=== PATIENT | female | born 2000 | race Caucasian/White ===

== ENCOUNTER 2024-09-03 05:12 | Emergency (ER) | payer OTHER ==
--- OUTSIDE RECORDS SUMMARY | 2024-09-03 05:17 | XMS REPORT | Continuity of Care Document ---
Author Name Unknown Address [address] [place] [address] [facility] Address [address] [place] [address] Care Team Providers Care Button Grader Name Role Phone GARIMA GAYLE Primary Care Physician Unavailab DAVION Taylor Attending Clinician Unavailable ESTRELLITA VILLA Attending Clinician ESTRELLITA Still Attending Clinician Yamilet Jose Attending Clinician [phone] YAMILET PALMER Attending Clinician Unavailable OBI-ROELCHRISTINA Peterson Attending Clinician Unavailab cinthia OBI-CHRISTINA SEVILLA Attending Clinician Unavailab cinthia Parmarb, [facility] Attending Clinician Unavailrudolph Jacobson RN, Pia Harris Attending Clinician KEITH Jimenez Attending Clinician Unavail able GARIMA GAYLE Attending Clinician Unavailable Garima Gayle MD Attending Clinician [phone] Doctor Unassigned, [place] Attending Clinician U Michael Riggs Attending Clinician Unavailable Delbert Rosen MD Attending Clinician [phone] Helder Alfredo Attending Clinician Unavailable DELBERT ROSEN Attending Clinician Unavailable EFREM RASHID Attending Clinician Unavailable Davion Mercado MD Attending Clinician Only, Vtc Test Attending Clinician Unavailable Rosangela HASSANSilvinoa Attending Clinician [phone] Abi ELLISON, Yamilet Arambula Attending Clinician [phone] DIOGO ESCALERA Attending Clinician Unavail able DAVION MERCADO Admitting Clinician Unavailable Physician, No Primary or Family Admitting Clinic ricardo Unavailable DIOGO ESCALERA Admitting Clinician Unavail able Payers Payer Name Policy Type Policy Number Effective Date Expirati on Date Source [facility] [id number] 2016 00:00:00 Problems Condition Name Condition Details Condition Category Status Onset Date Resolution Date Last Treatment Date Treating Clinician Comments Source 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 Added automatic ally from request for surgery [id number] [facility] Chronic intractabl e headache, unspecifie d headache type Chronic intractabl e headache, unspecifie d headache type Disease Active 12-11 00:00: 00 Overview: Formattin g of this note might be different from the original. 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 Added automatic ally from request for surgery [id number] [facility] Patient denies medical problems Patient denies medical problems Disease Active 01-17 00:00: 00 Overview: Formattin g of this note might be different from the original. 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 [facility] Allergies, Adverse Reactions, Alerts Allergy Name Allergy Type Status Severity Reaction(s) Onset Date Inactive Date Treating Clinician Comments Source amoxicil layo DA Active SV RASH-HIVES 06-05 00:00: 00 [facility] AMOXICIL LAYO DRUG INGREDI Active Hives 12-07 00:00: 00 [facility] Amoxicil layo Propensi ty to adverse reaction s Active Hives 12-07 00:00: 00 [facility] Social History Social Habit Start Date Stop Date Quantity Comments Source [facility] intake 2023-08-02 00:00:00 2023-08-02 00:00:00 Current non-drinker of alcohol (finding) [facility] Exposure to SARS-CoV-2 (event) 2023-02-17 00:00:00 2023-02-27 10:15:00 Not sure [facility] History of Social function 2023-02-27 00:00:00 2023-02-27 00:00:00 [facility] Tobacco use and exposure 2022-12-21 00:00:00 2022-12-21 00:00:00 Smokeless tobacco non-user [facility] Sex Assigned At 2002 00:00:00 2000 00:00:00 [facility] Smoking Status Start Date Stop Date Source Never smoked tobacco [facility] Medications Ordered Medication Name Filled Medication Name Start Date Stop Date Current Medication? Ordering Clinician Indication Dosage Frequency Signature (SIG) Comments Components Source sennosides (SENNA) 8.6 mg tablet 2022-10 00:00: 00 08-30 05:59 :00 No [id number] 8.6mg Take 1 tablet by mouth ONCE PRN for Constipati on for up to 1 dose. [facility] cephALEXin 500 mg capsule 2022-10 00:00: 00 08-28 00:00 :00 No [facility] ibuprofen 600 mg tablet 2022-10 00:00: 00 08-28 00:00 :00 No [facility] sulfamethox azole-trime thoprim 800-160 mg per tablet 2022-10 00:00: 00 08-28 00:00 :00 No [facility] ibuprofen (ADVIL ORAL) 04-13 10:59: 30 04-13 00:00 :00 No Take by mouth. [facility] ibuprofen (ADVIL ORAL) 16 11:38: 29 Yes Take by mouth. [facility] ondansetron 4 mg tablet 5-16 00:00: 00 04-13 00:00 :00 No [id number] 4mg Take 1 tablet by mouth every 8 (eight) hours as needed for Nausea and Vomiting (N/V). [facility] etonogestre L (NEXPLANON) implant 68 mg 3-09 16:00: 00 12-21 15:06 :00 No [id number] 68mg [facility] ibuprofen (ADVIL ORAL) 2-23 11:28: 50 Yes Take by mouth. [facility] cefdinir 300 mg capsule 04-07 00:00: 00 04-18 04:59 :00 No [id number] 300mg Take 1 capsule by mouth 2 (two) times daily for 10 days. [facility] neomycin-po lymyxin-hyd rocortisone otic solution 04-07 00:00: 00 04-18 04:59 :00 No [id number] 4[drp] Place 4 Drops in both ears 4 (four) times daily for 10 days. [facility] fluticasone propionate 50 mcg/actuati on nasal spray 01-13 00:00: 00 04-13 00:00 :00 No [id number] 1{spray } Use 1 [place] in each nostril 2 (two) times daily. [facility] lidocaine 2% viscous (LIDOCAINE VISCOUS) 2 % solution 01-13 00:00: 00 04-13 00:00 :00 No [id number] Swish and spit 15 ml qid prn sore throat [facility] ibuprofen (ADVIL ORAL) 2019-10 0 13:42: 24 Yes Take by mouth. [facility] Immunizations Ordered Immunization Name Filled Immunization Name Date Status Comments Source Influenza Virus Vaccine Quad .5 mL IM 6+ MO 2019-08-22 00:00:00 Completed [facility] Influenza Virus Vaccine Quad .5 mL IM 6+ MO 2019-08-22 00:00:00 Completed [facility] Influenza Virus Vaccine Quad .5 mL IM 6+ MO 2019-08-22 00:00:00 Completed [facility] Influenza Virus Vaccine Quad .5 mL IM 6+ MO 2019-08-22 00:00:00 Completed [facility] Influenza Virus Vaccine Quad .5 mL IM 6+ MO 2019-08-22 00:00:00 Completed [facility] Influenza Virus Vaccine Quad .5 mL IM 6+ MO 2019-08-22 00:00:00 Completed [facility] Influenza Virus Vaccine Quad .5 mL IM 6+ MO 2019-08-22 00:00:00 Completed [facility] Influenza Virus Vaccine Quad .5 mL IM 6+ MO 2019-08-22 00:00:00 Completed [facility] Influenza Virus Vaccine Quad .5 mL IM 6+ MO 2019-08-22 00:00:00 Completed [facility] Meningococcal B, OMV 2019-04-28 00:00:00 Completed [facility] HPV9 2019-04-28 00:00:00 Completed [facility] Meningococcal B, OMV 2019-04-28 00:00:00 Completed [facility] HPV9 2019-04-28 00:00:00 Completed [facility] Meningococcal B, OMV 2019-04-28 00:00:00 Completed [facility] HPV9 2019-04-28 00:00:00 Completed [facility] Meningococcal B, OMV 2019-04-28 00:00:00 Completed [facility] HPV9 2019-04-28 00:00:00 Completed [facility] Meningococcal B, OMV 2019-04-28 00:00:00 Completed [facility] HPV9 2019-04-28 00:00:00 Completed [facility] Meningococcal B, OMV 2019-04-28 00:00:00 Completed [facility] HPV9 2019-04-28 00:00:00 Completed [facility] Meningococcal B, OMV 2019-04-28 00:00:00 Completed [facility] HPV9 2019-04-28 00:00:00 Completed [facility] Meningococcal B, OMV 2019-04-28 00:00:00 Completed [facility] HPV9 2019-04-28 00:00:00 Completed [facility] Meningococcal B, OMV 2019-04-28 00:00:00 Completed [facility] HPV9 2019-04-28 00:00:00 Completed [facility] HPV9 2018-12-27 00:00:00 Completed [facility] HPV9 2018-12-27 00:00:00 Completed [facility] HPV9 2018-12-27 00:00:00 Completed [facility] HPV9 2018-12-27 00:00:00 Completed [facility] HPV9 2018-12-27 00:00:00 Completed [facility] HPV9 2018-12-27 00:00:00 Completed [facility] HPV9 2018-12-27 00:00:00 Completed [facility] HPV9 2018-12-27 00:00:00 Completed [facility] HPV9 2018-12-27 00:00:00 Completed [facility] Influenza Virus Vaccine Quad .5 mL IM 6+ MO 2018-10-30 00:00:00 Completed [facility] Meningococcal Oligosaccharide (groups A, C, Y and W-135) conjugate vaccine (MCV4O) 2018-10-30 00:00:00 Completed [facility] Meningococcal B, OMV 2018-10-30 00:00:00 Completed [facility] HPV9 2018-10-30 00:00:00 Completed [facility] Influenza Virus Vaccine Quad .5 mL IM 6+ MO 2018-10-30 00:00:00 Completed [facility] Meningococcal Oligosaccharide (groups A, C, Y and W-135) conjugate vaccine (MCV4O) 2018-10-30 00:00:00 Completed [facility] Meningococcal B, OMV 2018-10-30 00:00:00 Completed [facility] HPV9 2018-10-30 00:00:00 Completed [facility] Influenza Virus Vaccine Quad .5 mL IM 6+ MO 2018-10-30 00:00:00 Completed [facility] Meningococcal Oligosaccharide (groups A, C, Y and W-135) conjugate vaccine (MCV4O) 2018-10-30 00:00:00 Completed [facility] Meningococcal B, OMV 2018-10-30 00:00:00 Completed [facility] HPV9 2018-10-30 00:00:00 Completed [facility] Influenza Virus Vaccine Quad .5 mL IM 6+ MO 2018-10-30 00:00:00 Completed [facility] Meningococcal Oligosaccharide (groups A, C, Y and W-135) conjugate vaccine (MCV4O) 2018-10-30 00:00:00 Completed [facility] Meningococcal B, OMV 2018-10-30 00:00:00 Completed [facility] HPV9 2018-10-30 00:00:00 Completed [facility] Influenza Virus Vaccine Quad .5 mL IM 6+ MO 2018-10-30 00:00:00 Completed [facility] Meningococcal Oligosaccharide (groups A, C, Y and W-135) conjugate vaccine (MCV4O) 2018-10-30 00:00:00 Completed [facility] Meningococcal B, OMV 2018-10-30 00:00:00 Completed [facility] HPV9 2018-10-30 00:00:00 Completed [facility] Influenza Virus Vaccine Quad .5 mL IM 6+ MO 2018-10-30 00:00:00 Completed [facility] Meningococcal Oligosaccharide (groups A, C, Y and W-135) conjugate vaccine (MCV4O) 2018-10-30 00:00:00 Completed [facility] Meningococcal B, OMV 2018-10-30 00:00:00 Completed [facility] HPV9 2018-10-30 00:00:00 Completed [facility] Influenza Virus Vaccine Quad .5 mL IM 6+ MO 2018-10-30 00:00:00 Completed [facility] Meningococcal Oligosaccharide (groups A, C, Y and W-135) conjugate vaccine (MCV4O) 2018-10-30 00:00:00 Completed [facility] Meningococcal B, OMV 2018-10-30 00:00:00 Completed [facility] HPV9 2018-10-30 00:00:00 Completed [facility] Influenza Virus Vaccine Quad .5 mL IM 6+ MO 2018-10-30 00:00:00 Completed [facility] Meningococcal Oligosaccharide (groups A, C, Y and W-135) conjugate vaccine (MCV4O) 2018-10-30 00:00:00 Completed [facility] Meningococcal B, OMV 2018-10-30 00:00:00 Completed [facility] HPV9 2018-10-30 00:00:00 Completed [facility] Influenza Virus Vaccine Quad .5 mL IM 6+ MO 2018-10-30 00:00:00 Completed [facility] Meningococcal Oligosaccharide (groups A, C, Y and W-135) conjugate vaccine (MCV4O) 2018-10-30 00:00:00 Completed [facility] Meningococcal B, OMV 2018-10-30 00:00:00 Completed [facility] HPV9 2018-10-30 00:00:00 Completed [facility] TDAP 2015-05-27 00:00:00 Completed [facility] Meningococcal Oligosaccharide (groups A, C, Y and W-135) conjugate vaccine (MCV4O) 2015-05-27 00:00:00 Completed [facility] TDAP 2015-05-27 00:00:00 Completed [facility] Meningococcal Oligosaccharide (groups A, C, Y and W-135) conjugate vaccine (MCV4O) 2015-05-27 00:00:00 Completed [facility] TDAP 2015-05-27 00:00:00 Completed [facility] Meningococcal Oligosaccharide (groups A, C, Y and W-135) conjugate vaccine (MCV4O) 2015-05-27 00:00:00 Completed [facility] TDAP 2015-05-27 00:00:00 Completed [facility] Meningococcal Oligosaccharide (groups A, C, Y and W-135) conjugate vaccine (MCV4O) 2015-05-27 00:00:00 Completed [facility] TDAP 2015-05-27 00:00:00 Completed [facility] Meningococcal Oligosaccharide (groups A, C, Y and W-135) conjugate vaccine (MCV4O) 2015-05-27 00:00:00 Completed [facility] TDAP 2015-05-27 00:00:00 Completed [facility] Meningococcal Oligosaccharide (groups A, C, Y and W-135) conjugate vaccine (MCV4O) 2015-05-27 00:00:00 Completed [facility] TDAP 2015-05-27 00:00:00 Completed [facility] Meningococcal Oligosaccharide (groups A, C, Y and W-135) conjugate vaccine (MCV4O) 2015-05-27 00:00:00 Completed [facility] TDAP 2015-05-27 00:00:00 Completed [facility] Meningococcal Oligosaccharide (groups A, C, Y and W-135) conjugate vaccine (MCV4O) 2015-05-27 00:00:00 Completed [facility] Meningococcal Polysaccharide (groups A, C, Y and W-135) conjugate vaccine (MCV4P) 2015-05-27 00:00:00 Completed [facility] TDAP 2015-05-27 00:00:00 Completed [facility] Meningococcal Oligosaccharide (groups A, C, Y and W-135) conjugate vaccine (MCV4O) 2015-05-27 00:00:00 Completed [facility] Meningococcal Polysaccharide (groups A, C, Y and W-135) conjugate vaccine (MCV4P) 2015-05-27 00:00:00 Completed [facility] HEPATITIS A 2009-01-08 00:00:00 Completed [facility] HEPATITIS A 2009-01-08 00:00:00 Completed [facility] HEPATITIS A 2009-01-08 00:00:00 Completed [facility] HEPATITIS A 2009-01-08 00:00:00 Completed [facility] HEPATITIS A 2009-01-08 00:00:00 Completed [facility] HEPATITIS A 2009-01-08 00:00:00 Completed [facility] HEPATITIS A 2009-01-08 00:00:00 Completed [facility] HEPATITIS A 2009-01-08 00:00:00 Completed [facility] HEPATITIS A 2009-01-08 00:00:00 Completed [facility] Influenza Virus Vaccine 2008-10-30 00:00:00 Completed [facility] Influenza Virus Vaccine 2008-10-30 00:00:00 Completed [facility] Influenza Virus Vaccine 2008-10-30 00:00:00 Completed [facility] Influenza Virus Vaccine 2008-10-30 00:00:00 Completed [facility] Influenza Virus Vaccine 2008-10-30 00:00:00 Completed [facility] Influenza Virus Vaccine 2008-10-30 00:00:00 Completed [facility] Influenza Virus Vaccine 2008-10-30 00:00:00 Completed [facility] Influenza Virus Vaccine 2008-10-30 00:00:00 Completed [facility] Flu Trivalent 2008-10-30 00:00:00 Completed [facility] Influenza Virus Vaccine 2008-10-30 00:00:00 Completed [facility] Flu Trivalent 2008-10-30 00:00:00 Completed [facility] HEPATITIS A 2007-08-13 00:00:00 Completed [facility] Influenza Virus Vaccine 2007-08-13 00:00:00 Completed [facility] Varicella (varivax)(chicken pox) 2007-08-13 00:00:00 Completed [facility] HEPATITIS A 2007-08-13 00:00:00 Completed [facility] Influenza Virus Vaccine 2007-08-13 00:00:00 Completed [facility] Varicella (varivax)(chicken pox) 2007-08-13 00:00:00 Completed [facility] HEPATITIS A 2007-08-13 00:00:00 Completed [facility] Influenza Virus Vaccine 2007-08-13 00:00:00 Completed [facility] Varicella (varivax)(chicken pox) 2007-08-13 00:00:00 Completed [facility] HEPATITIS A 2007-08-13 00:00:00 Completed [facility] Influenza Virus Vaccine 2007-08-13 00:00:00 Completed [facility] Varicella (varivax)(chicken pox) 2007-08-13 00:00:00 Completed [facility] HEPATITIS A 2007-08-13 00:00:00 Completed [facility] Influenza Virus Vaccine 2007-08-13 00:00:00 Completed [facility] Varicella (varivax)(chicken pox) 2007-08-13 00:00:00 Completed [facility] HEPATITIS A 2007-08-13 00:00:00 Completed [facility] Influenza Virus Vaccine 2007-08-13 00:00:00 Completed [facility] Varicella (varivax)(chicken pox) 2007-08-13 00:00:00 Completed [facility] HEPATITIS A 2007-08-13 00:00:00 Completed [facility] Influenza Virus Vaccine 2007-08-13 00:00:00 Completed [facility] Varicella (varivax)(chicken pox) 2007-08-13 00:00:00 Completed [facility] HEPATITIS A 2007-08-13 00:00:00 Completed [facility] Influenza Virus Vaccine 2007-08-13 00:00:00 Completed [facility] Varicella (varivax)(chicken pox) 2007-08-13 00:00:00 Completed [facility] Flu Trivalent 2007-08-13 00:00:00 Completed [facility] HEPATITIS A 2007-08-13 00:00:00 Completed [facility] Influenza Virus Vaccine 2007-08-13 00:00:00 Completed [facility] Varicella (varivax)(chicken pox) 2007-08-13 00:00:00 Completed [facility] Flu Trivalent 2007-08-13 00:00:00 Completed [facility] DTAP 2006-10-03 00:00:00 Completed [facility] Influenza Virus Vaccine 2006-10-03 00:00:00 Completed [facility] MMR 2006-10-03 00:00:00 Completed [facility] Polio (IPV/OPV) 2006-10-03 00:00:00 Completed [facility] DTAP 2006-10-03 00:00:00 Completed [facility] Influenza Virus Vaccine 2006-10-03 00:00:00 Completed [facility] MMR 2006-10-03 00:00:00 Completed [facility] Polio (IPV/OPV) 2006-10-03 00:00:00 Completed [facility] DTAP 2006-10-03 00:00:00 Completed [facility] Influenza Virus Vaccine 2006-10-03 00:00:00 Completed [facility] MMR 2006-10-03 00:00:00 Completed [facility] Polio (IPV/OPV) 2006-10-03 00:00:00 Completed [facility] DTAP 2006-10-03 00:00:00 Completed [facility] Influenza Virus Vaccine 2006-10-03 00:00:00 Completed [facility] MMR 2006-10-03 00:00:00 Completed [facility] Polio (IPV/OPV) 2006-10-03 00:00:00 Completed [facility] DTAP 2006-10-03 00:00:00 Completed [facility] Influenza Virus Vaccine 2006-10-03 00:00:00 Completed [facility] MMR 2006-10-03 00:00:00 Completed [facility] Polio (IPV/OPV) 2006-10-03 00:00:00 Completed [facility] DTAP 2006-10-03 00:00:00 Completed [facility] Influenza Virus Vaccine 2006-10-03 00:00:00 Completed [facility] MMR 2006-10-03 00:00:00 Completed [facility] Polio (IPV/OPV) 2006-10-03 00:00:00 Completed [facility] DTAP 2006-10-03 00:00:00 Completed [facility] Influenza Virus Vaccine 2006-10-03 00:00:00 Completed [facility] MMR 2006-10-03 00:00:00 Completed [facility] Polio (IPV/OPV) 2006-10-03 00:00:00 Completed [facility] DTAP 2006-10-03 00:00:00 Completed [facility] Influenza Virus Vaccine 2006-10-03 00:00:00 Completed [facility] MMR 2006-10-03 00:00:00 Completed [facility] Polio (IPV/OPV) 2006-10-03 00:00:00 Completed [facility] DTaP, Unspecified Formulation 2006-10-03 00:00:00 Completed [facility] Flu Trivalent 2006-10-03 00:00:00 Completed [facility] HIB 3 Dose Schedule 2006-10-03 00:00:00 Completed [facility] IPV 2006-10-03 00:00:00 Completed [facility] DTAP 2006-10-03 00:00:00 Completed [facility] Influenza Virus Vaccine 2006-10-03 00:00:00 Completed [facility] MMR 2006-10-03 00:00:00 Completed [facility] Polio (IPV/OPV) 2006-10-03 00:00:00 Completed [facility] DTaP, Unspecified Formulation 2006-10-03 00:00:00 Completed [facility] Flu Trivalent 2006-10-03 00:00:00 Completed [facility] HIB 3 Dose Schedule 2006-10-03 00:00:00 Completed [facility] IPV 2006-10-03 00:00:00 Completed [facility] Pneumococcal 13 Conjugate, PCV13 (Prevnar 13) 2005-02-06 00:00:00 Completed [facility] Pneumococcal 13 Conjugate, PCV13 (Prevnar 13) 2005-02-06 00:00:00 Completed [facility] Pneumococcal 13 Conjugate, PCV13 (Prevnar 13) 2005-02-06 00:00:00 Completed [facility] Pneumococcal 13 Conjugate, PCV13 (Prevnar 13) 2005-02-06 00:00:00 Completed [facility] Pneumococcal 13 Conjugate, PCV13 (Prevnar 13) 2005-02-06 00:00:00 Completed [facility] Pneumococcal 13 Conjugate, PCV13 (Prevnar 13) 2005-02-06 00:00:00 Completed [facility] Pneumococcal 13 Conjugate, PCV13 (Prevnar 13) 2005-02-06 00:00:00 Completed [facility] Pneumococcal 13 Conjugate, PCV13 (Prevnar 13) 2005-02-06 00:00:00 Completed [facility] Pneumococcal 13 Conjugate, PCV13 (Prevnar 13) 2005-02-06 00:00:00 Completed [facility] DTAP 2003-11-03 00:00:00 Completed [facility] HIB 4 Dose Schedule 2003-11-03 00:00:00 Completed [facility] Pneumococcal 13 Conjugate, PCV13 (Prevnar 13) 2003-11-03 00:00:00 Completed [facility] Polio (IPV/OPV) 2003-11-03 00:00:00 Completed [facility] DTAP 2003-11-03 00:00:00 Completed [facility] HIB 4 Dose Schedule 2003-11-03 00:00:00 Completed [facility] Pneumococcal 13 Conjugate, PCV13 (Prevnar 13) 2003-11-03 00:00:00 Completed [facility] Polio (IPV/OPV) 2003-11-03 00:00:00 Completed [facility] DTAP 2003-11-03 00:00:00 Completed [facility] HIB 4 Dose Schedule 2003-11-03 00:00:00 Completed [facility] Pneumococcal 13 Conjugate, PCV13 (Prevnar 13) 2003-11-03 00:00:00 Completed [facility] Polio (IPV/OPV) 2003-11-03 00:00:00 Completed [facility] DTAP 2003-11-03 00:00:00 Completed [facility] HIB 4 Dose Schedule 2003-11-03 00:00:00 Completed [facility] Pneumococcal 13 Conjugate, PCV13 (Prevnar 13) 2003-11-03 00:00:00 Completed [facility] Polio (IPV/OPV) 2003-11-03 00:00:00 Completed [facility] DTAP 2003-11-03 00:00:00 Completed [facility] HIB 4 Dose Schedule 2003-11-03 00:00:00 Completed [facility] Pneumococcal 13 Conjugate, PCV13 (Prevnar 13) 2003-11-03 00:00:00 Completed [facility] Polio (IPV/OPV) 2003-11-03 00:00:00 Completed [facility] DTAP 2003-11-03 00:00:00 Completed [facility] HIB 4 Dose Schedule 2003-11-03 00:00:00 Completed [facility] Pneumococcal 13 Conjugate, PCV13 (Prevnar 13) 2003-11-03 00:00:00 Completed [facility] Polio (IPV/OPV) 2003-11-03 00:00:00 Completed [facility] DTAP 2003-11-03 00:00:00 Completed [facility] HIB 4 Dose Schedule 2003-11-03 00:00:00 Completed [facility] Pneumococcal 13 Conjugate, PCV13 (Prevnar 13) 2003-11-03 00:00:00 Completed [facility] Polio (IPV/OPV) 2003-11-03 00:00:00 Completed [facility] DTAP 2003-11-03 00:00:00 Completed [facility] HIB 4 Dose Schedule 2003-11-03 00:00:00 Completed [facility] Pneumococcal 13 Conjugate, PCV13 (Prevnar 13) 2003-11-03 00:00:00 Completed [facility] Polio (IPV/OPV) 2003-11-03 00:00:00 Completed [facility] DTaP, Unspecified Formulation 2003-11-03 00:00:00 Completed [facility] Pneumococcal 7 Conjugate, PCV7 (Prevnar7) 2003-11-03 00:00:00 Completed [facility] IPV 2003-11-03 00:00:00 Completed [facility] DTAP 2003-11-03 00:00:00 Completed [facility] HIB 4 Dose Schedule 2003-11-03 00:00:00 Completed [facility] Pneumococcal 13 Conjugate, PCV13 (Prevnar 13) 2003-11-03 00:00:00 Completed [facility] Polio (IPV/OPV) 2003-11-03 00:00:00 Completed [facility] DTaP, Unspecified Formulation 2003-11-03 00:00:00 Completed [facility] Pneumococcal 7 Conjugate, PCV7 (Prevnar7) 2003-11-03 00:00:00 Completed [facility] IPV 2003-11-03 00:00:00 Completed [facility] MMR 2003-07-29 00:00:00 Completed [facility] Varicella (varivax)(chicken pox) 2003-07-29 00:00:00 Completed [facility] MMR 2003-07-29 00:00:00 Completed [facility] Varicella (varivax)(chicken pox) 2003-07-29 00:00:00 Completed [facility] MMR 2003-07-29 00:00:00 Completed [facility] Varicella (varivax)(chicken pox) 2003-07-29 00:00:00 Completed [facility] MMR 2003-07-29 00:00:00 Completed [facility] Varicella (varivax)(chicken pox) 2003-07-29 00:00:00 Completed [facility] MMR 2003-07-29 00:00:00 Completed [facility] Varicella (varivax)(chicken pox) 2003-07-29 00:00:00 Completed [facility] MMR 2003-07-29 00:00:00 Completed [facility] Varicella (varivax)(chicken pox) 2003-07-29 00:00:00 Completed [facility] MMR 2003-07-29 00:00:00 Completed [facility] Varicella (varivax)(chicken pox) 2003-07-29 00:00:00 Completed [facility] MMR 2003-07-29 00:00:00 Completed [facility] Varicella (varivax)(chicken pox) 2003-07-29 00:00:00 Completed [facility] MMR 2003-07-29 00:00:00 Completed [facility] Varicella (varivax)(chicken pox) 2003-07-29 00:00:00 Completed [facility] Hep B, Adol or Pedi Dosage 2003-05-19 00:00:00 Completed [facility] Hep B, Adol or Pedi Dosage 2003-05-19 00:00:00 Completed [facility] Hep B, Adol or Pedi Dosage 2003-05-19 00:00:00 Completed [facility] Hep B, Adol or Pedi Dosage 2003-05-19 00:00:00 Completed [facility] Hep B, Adol or Pedi Dosage 2003-05-19 00:00:00 Completed [facility] Hep B, Adol or Pedi Dosage 2003-05-19 00:00:00 Completed [facility] Hep B, Adol or Pedi Dosage 2003-05-19 00:00:00 Completed [facility] Hep B, Adol or Pedi Dosage 2003-05-19 00:00:00 Completed [facility] Hep B, Adol or Pedi Dosage 2003-05-19 00:00:00 Completed [facility] DTAP 2003-02-06 00:00:00 Completed [facility] HIB 4 Dose Schedule 2003-02-06 00:00:00 Completed [facility] DTAP 2003-02-06 00:00:00 Completed [facility] HIB 4 Dose Schedule 2003-02-06 00:00:00 Completed [facility] DTAP 2003-02-06 00:00:00 Completed [facility] HIB 4 Dose Schedule 2003-02-06 00:00:00 Completed [facility] DTAP 2003-02-06 00:00:00 Completed [facility] HIB 4 Dose Schedule 2003-02-06 00:00:00 Completed [facility] DTAP 2003-02-06 00:00:00 Completed [facility] HIB 4 Dose Schedule 2003-02-06 00:00:00 Completed [facility] DTAP 2003-02-06 00:00:00 Completed [facility] HIB 4 Dose Schedule 2003-02-06 00:00:00 Completed [facility] DTAP 2003-02-06 00:00:00 Completed [facility] HIB 4 Dose Schedule 2003-02-06 00:00:00 Completed [facility] DTAP 2003-02-06 00:00:00 Completed [facility] HIB 4 Dose Schedule 2003-02-06 00:00:00 Completed [facility] DTaP, Unspecified Formulation 2003-02-06 00:00:00 Completed [facility] Pneumococcal 7 Conjugate, PCV7 (Prevnar7) 2003-02-06 00:00:00 Completed [facility] DTAP 2003-02-06 00:00:00 Completed [facility] HIB 4 Dose Schedule 2003-02-06 00:00:00 Completed [facility] DTaP, Unspecified Formulation 2003-02-06 00:00:00 Completed [facility] Pneumococcal 7 Conjugate, PCV7 (Prevnar7) 2003-02-06 00:00:00 Completed [facility] DTAP 2002 00:00:00 Completed [facility] HIB 4 Dose Schedule 2002 00:00:00 Completed [facility] Pneumococcal 13 Conjugate, PCV13 (Prevnar 13) 2002 00:00:00 Completed [facility] Polio (IPV/OPV) 2002 00:00:00 Completed [facility] DTAP 2002 00:00:00 Completed [facility] HIB 4 Dose Schedule 2002 00:00:00 Completed [facility] Pneumococcal 13 Conjugate, PCV13 (Prevnar 13) 2002 00:00:00 Completed [facility] Polio (IPV/OPV) 2002 00:00:00 Completed [facility] DTAP 2002 00:00:00 Completed [facility] HIB 4 Dose Schedule 2002 00:00:00 Completed [facility] Pneumococcal 13 Conjugate, PCV13 (Prevnar 13) 2002 00:00:00 Completed [facility] Polio (IPV/OPV) 2002 00:00:00 Completed [facility] DTAP 2002 00:00:00 Completed [facility] HIB 4 Dose Schedule 2002 00:00:00 Completed [facility] Pneumococcal 13 Conjugate, PCV13 (Prevnar 13) 2002 00:00:00 Completed [facility] Polio (IPV/OPV) 2002 00:00:00 Completed [facility] DTAP 2002 00:00:00 Completed [facility] HIB 4 Dose Schedule 2002 00:00:00 Completed [facility] Pneumococcal 13 Conjugate, PCV13 (Prevnar 13) 2002 00:00:00 Completed [facility] Polio (IPV/OPV) 2002 00:00:00 Completed [facility] DTAP 2002 00:00:00 Completed [facility] HIB 4 Dose Schedule 2002 00:00:00 Completed [facility] Pneumococcal 13 Conjugate, PCV13 (Prevnar 13) 2002 00:00:00 Completed [facility] Polio (IPV/OPV) 2002 00:00:00 Completed [facility] DTAP 2002 00:00:00 Completed [facility] HIB 4 Dose Schedule 2002 00:00:00 Completed [facility] Pneumococcal 13 Conjugate, PCV13 (Prevnar 13) 2002 00:00:00 Completed [facility] Polio (IPV/OPV) 2002 00:00:00 Completed [facility] DTAP 2002 00:00:00 Completed [facility] HIB 4 Dose Schedule 2002 00:00:00 Completed [facility] Pneumococcal 13 Conjugate, PCV13 (Prevnar 13) 2002 00:00:00 Completed [facility] Polio (IPV/OPV) 2002 00:00:00 Completed [facility] DTaP, Unspecified Formulation 2002 00:00:00 Completed [facility] Pneumococcal 7 Conjugate, PCV7 (Prevnar7) 2002 00:00:00 Completed [facility] IPV 2002 00:00:00 Completed [facility] DTAP 2002 00:00:00 Completed [facility] HIB 4 Dose Schedule 2002 00:00:00 Completed [facility] Pneumococcal 13 Conjugate, PCV13 (Prevnar 13) 2002 00:00:00 Completed [facility] Polio (IPV/OPV) 2002 00:00:00 Completed [facility] DTaP, Unspecified Formulation 2002 00:00:00 Completed [facility] Pneumococcal 7 Conjugate, PCV7 (Prevnar7) 2002 00:00:00 Completed [facility] IPV 2002 00:00:00 Completed [facility] DTAP 2002 00:00:00 Completed [facility] HIB 4 Dose Schedule 2002 00:00:00 Completed [facility] Pneumococcal 13 Conjugate, PCV13 (Prevnar 13) 2002 00:00:00 Completed [facility] Polio (IPV/OPV) 2002 00:00:00 Completed [facility] DTAP 2002 00:00:00 Completed [facility] HIB 4 Dose Schedule 2002 00:00:00 Completed [facility] Pneumococcal 13 Conjugate, PCV13 (Prevnar 13) 2002 00:00:00 Completed [facility] Polio (IPV/OPV) 2002 00:00:00 Completed [facility] DTAP 2002 00:00:00 Completed [facility] HIB 4 Dose Schedule 2002 00:00:00 Completed [facility] Pneumococcal 13 Conjugate, PCV13 (Prevnar 13) 2002 00:00:00 Completed [facility] Polio (IPV/OPV) 2002 00:00:00 Completed [facility] DTAP 2002 00:00:00 Completed [facility] HIB 4 Dose Schedule 2002 00:00:00 Completed [facility] Pneumococcal 13 Conjugate, PCV13 (Prevnar 13) 2002 00:00:00 Completed [facility] Polio (IPV/OPV) 2002 00:00:00 Completed [facility] DTAP 2002 00:00:00 Completed [facility] HIB 4 Dose Schedule 2002 00:00:00 Completed [facility] Pneumococcal 13 Conjugate, PCV13 (Prevnar 13) 2002 00:00:00 Completed [facility] Polio (IPV/OPV) 2002 00:00:00 Completed [facility] DTAP 2002 00:00:00 Completed [facility] HIB 4 Dose Schedule 2002 00:00:00 Completed [facility] Pneumococcal 13 Conjugate, PCV13 (Prevnar 13) 2002 00:00:00 Completed [facility] Polio (IPV/OPV) 2002 00:00:00 Completed [facility] DTAP 2002 00:00:00 Completed [facility] HIB 4 Dose Schedule 2002 00:00:00 Completed [facility] Pneumococcal 13 Conjugate, PCV13 (Prevnar 13) 2002 00:00:00 Completed [facility] Polio (IPV/OPV) 2002 00:00:00 Completed [facility] DTAP 2002 00:00:00 Completed [facility] HIB 4 Dose Schedule 2002 00:00:00 Completed [facility] Pneumococcal 13 Conjugate, PCV13 (Prevnar 13) 2002 00:00:00 Completed [facility] Polio (IPV/OPV) 2002 00:00:00 Completed [facility] DTaP, Unspecified Formulation 2002 00:00:00 Completed [facility] Pneumococcal 7 Conjugate, PCV7 (Prevnar7) 2002 00:00:00 Completed [facility] IPV 2002 00:00:00 Completed [facility] DTAP 2002 00:00:00 Completed [facility] HIB 4 Dose Schedule 2002 00:00:00 Completed [facility] Pneumococcal 13 Conjugate, PCV13 (Prevnar 13) 2002 00:00:00 Completed [facility] Polio (IPV/OPV) 2002 00:00:00 Completed [facility] DTaP, Unspecified Formulation 2002 00:00:00 Completed [facility] Pneumococcal 7 Conjugate, PCV7 (Prevnar7) 2002 00:00:00 Completed [facility] IPV 2002 00:00:00 Completed [facility] Hep B, Adol or Pedi Dosage 2002 00:00:00 Completed [facility] Hep B, Adol or Pedi Dosage 2002 00:00:00 Completed [facility] Hep B, Adol or Pedi Dosage 2002 00:00:00 Completed [facility] Hep B, Adol or Pedi Dosage 2002 00:00:00 Completed [facility] Hep B, Adol or Pedi Dosage 2002 00:00:00 Completed [facility] Hep B, Adol or Pedi Dosage 2002 00:00:00 Completed [facility] Hep B, Adol or Pedi Dosage 2002 00:00:00 Completed [facility] Hep B, Adol or Pedi Dosage 2002 00:00:00 Completed [facility] Hep B, Adol or Pedi Dosage 2002 00:00:00 Completed [facility] Hep B, Adol or Pedi Dosage 2002 00:00:00 Completed [facility] Hep B, Adol or Pedi Dosage 2002 00:00:00 Completed [facility] Hep B, Adol or Pedi Dosage 2002 00:00:00 Completed [facility] Hep B, Adol or Pedi Dosage 2002 00:00:00 Completed [facility] Hep B, Adol or Pedi Dosage 2002 00:00:00 Completed [facility] Hep B, Adol or Pedi Dosage 2002 00:00:00 Completed [facility] Hep B, Adol or Pedi Dosage 2002 00:00:00 Completed [facility] Hep B, Adol or Pedi Dosage 2002 00:00:00 Completed [facility] Hep B, Adol or Pedi Dosage 2002 00:00:00 Completed [facility] DTaP, Unspecified Formulation Unknown Completed [facility] Flu Trivalent Unknown Completed [facility] Pneumococcal 7 Conjugate, PCV7 (Prevnar7) Unknown Completed [facility] IPV Unknown Completed [facility] DTAP Unknown Completed [facility] HIB 4 Dose Schedule Unknown Completed [facility] HEPATITIS A Unknown Completed [facility] Hep B, Adol or Pedi Dosage Unknown Completed [facility] Influenza Virus Vaccine Unknown Completed [facility] MMR Unknown Completed [facility] Pneumococcal 13 Conjugate, PCV13 (Prevnar 13) Unknown Completed [facility] Polio (IPV/OPV) Unknown Completed [facility] Varicella (varivax)(chicken pox) Unknown Completed [facility] TDAP Unknown Completed [facility] Meningococcal Oligosaccharide (groups A, C, Y and W-135) conjugate vaccine (MCV4O) Unknown Completed [facility] Influenza Virus Vaccine Quad .5 mL IM 6+ MO (FLUZONE/FLULAVAL/FLU ARIX) Unknown Completed [facility] Meningococcal B, OMV Unknown Completed [facility] HPV9 Unknown Completed [facility] DTaP, Unspecified Formulation Unknown Completed [facility] Flu Trivalent Unknown Completed [facility] HIB 3 Dose Schedule Unknown Completed [facility] Meningococcal Polysaccharide (groups A, C, Y and W-135) conjugate vaccine (MCV4P) Unknown Completed [facility] Pneumococcal 7 Conjugate, PCV7 (Prevnar7) Unknown Completed [facility] IPV Unknown Completed [facility] DTAP Unknown Completed [facility] HIB 4 Dose Schedule Unknown Completed [facility] HEPATITIS A Unknown Completed [facility] Hep B, Adol or Pedi Dosage Unknown Completed [facility] Influenza Virus Vaccine Unknown Completed [facility] MMR Unknown Completed [facility] Pneumococcal 13 Conjugate, PCV13 (Prevnar 13) Unknown Completed [facility] Polio (IPV/OPV) Unknown Completed [facility] Varicella (varivax)(chicken pox) Unknown Completed [facility] TDAP Unknown Completed [facility] Meningococcal Oligosaccharide (groups A, C, Y and W-135) conjugate vaccine (MCV4O) Unknown Completed [facility] Influenza Virus Vaccine Quad .5 mL IM 6+ MO (FLUZONE/FLULAVAL/FLU ARIX) Unknown Completed [facility] Meningococcal B, OMV Unknown Completed [facility] HPV9 Unknown Completed [facility] DTaP, Unspecified Formulation Unknown Completed [facility] Flu Trivalent Unknown Completed [facility] HIB 3 Dose Schedule Unknown Completed [facility] Meningococcal Polysaccharide (groups A, C, Y and W-135) conjugate vaccine (MCV4P) Unknown Completed [facility] Pneumococcal 7 Conjugate, PCV7 (Prevnar7) Unknown Completed [facility] IPV Unknown Completed [facility] DTAP Unknown Completed [facility] HIB 4 Dose Schedule Unknown Completed [facility] HEPATITIS A Unknown Completed [facility] Hep B, Adol or Pedi Dosage Unknown Completed [facility] Influenza Virus Vaccine Unknown Completed [facility] MMR Unknown Completed [facility] Pneumococcal 13 Conjugate, PCV13 (Prevnar 13) Unknown Completed [facility] Polio (IPV/OPV) Unknown Completed [facility] Varicella (varivax)(chicken pox) Unknown Completed [facility] TDAP Unknown Completed [facility] Meningococcal Oligosaccharide (groups A, C, Y and W-135) conjugate vaccine (MCV4O) Unknown Completed [facility] Influenza Virus Vaccine Quad .5 mL IM 6+ MO (FLUZONE/FLULAVAL/FLU ARIX) Unknown Completed [facility] Meningococcal B, OMV Unknown Completed [facility] HPV9 Unknown Completed [facility] DTaP, Unspecified Formulation Unknown Completed [facility] Flu Trivalent Unknown Completed [facility] HIB 3 Dose Schedule Unknown Completed [facility] Meningococcal Polysaccharide (groups A, C, Y and W-135) conjugate vaccine (MCV4P) Unknown Completed [facility] Pneumococcal 7 Conjugate, PCV7 (Prevnar7) Unknown Completed [facility] IPV Unknown Completed [facility] DTAP Unknown Completed [facility] HIB 4 Dose Schedule Unknown Completed [facility] HEPATITIS A Unknown Completed [facility] Hep B, Adol or Pedi Dosage Unknown Completed [facility] Influenza Virus Vaccine Unknown Completed [facility] MMR Unknown Completed [facility] Pneumococcal 13 Conjugate, PCV13 (Prevnar 13) Unknown Completed [facility] Polio (IPV/OPV) Unknown Completed [facility] Varicella (varivax)(chicken pox) Unknown Completed [facility] TDAP Unknown Completed [facility] Meningococcal Oligosaccharide (groups A, C, Y and W-135) conjugate vaccine (MCV4O) Unknown Completed [facility] Influenza Virus Vaccine Quad .5 mL IM 6+ MO (FLUZONE/FLULAVAL/FLU ARIX) Unknown Completed [facility] Meningococcal B, OMV Unknown Completed [facility] HPV9 Unknown Completed [facility] DTaP, Unspecified Formulation Unknown Completed [facility] Flu Trivalent Unknown Completed [facility] HIB 3 Dose Schedule Unknown Completed [facility] Meningococcal Polysaccharide (groups A, C, Y and W-135) conjugate vaccine (MCV4P) Unknown Completed [facility] Pneumococcal 7 Conjugate, PCV7 (Prevnar7) Unknown Completed [facility] IPV Unknown Completed [facility] DTAP Unknown Completed [facility] HIB 4 Dose Schedule Unknown Completed [facility] HEPATITIS A Unknown Completed [facility] Hep B, Adol or Pedi Dosage Unknown Completed [facility] Influenza Virus Vaccine Unknown Completed [facility] MMR Unknown Completed [facility] Pneumococcal 13 Conjugate, PCV13 (Prevnar 13) Unknown Completed [facility] Polio (IPV/OPV) Unknown Completed [facility] Varicella (varivax)(chicken pox) Unknown [facility] [facility] Unknown Completed [facility] Meningococcal Oligosaccharide (groups A, C, Y and W-135) conjugate vaccine (MCV4O) Unknown Completed [facility] Influenza Virus Vaccine Quad .5 mL IM 6+ MO (FLUZONE/FLULAVAL/FLU ARIX) Unknown Completed [facility] Meningococcal B, OMV Unknown Completed [facility] HPV9 Unknown Completed [facility] DTaP, Unspecified Formulation Unknown Completed [facility] Flu Trivalent Unknown Completed [facility] HIB 3 Dose Schedule Unknown Completed [facility] Meningococcal Polysaccharide (groups A, C, Y and W-135) conjugate vaccine (MCV4P) Unknown Completed [facility] Pneumococcal 7 Conjugate, PCV7 (Prevnar7) Unknown Completed [facility] IPV Unknown Completed [facility] Influenza Virus Vaccine Quad .5 mL IM 6+ MO (FLUZONE/FLULAVAL/FLU ARIX) Unknown Completed [facility] Meningococcal B, OMV Unknown Completed [facility] HPV9 Unknown Completed [facility] DTaP, Unspecified Formulation Unknown Completed [facility] Flu Trivalent Unknown Completed [facility] HIB 3 Dose Schedule Unknown Completed [facility] Meningococcal Polysaccharide (groups A, C, Y and W-135) conjugate vaccine (MCV4P) Unknown Completed [facility] Pneumococcal 7 Conjugate, PCV7 (Prevnar7) Unknown Completed [facility] IPV Unknown Completed [facility] Meningococcal Oligosaccharide (groups A, C, Y and W-135) conjugate vaccine (MCV4O) Unknown Completed [facility] DTAP Unknown Completed [facility] HIB 4 Dose Schedule Unknown Completed [facility] HEPATITIS A Unknown Completed [facility] Hep B, Adol or Pedi Dosage Unknown Completed [facility] Influenza Virus Vaccine Unknown Completed [facility] MMR Unknown Completed [facility] Pneumococcal 13 Conjugate, PCV13 (Prevnar 13) Unknown Completed [facility] Polio (IPV/OPV) Unknown Completed [facility] Varicella (varivax)(chicken pox) Unknown Completed [facility] TDAP Unknown Completed [facility] DTAP Unknown Completed [facility] HIB 4 Dose Schedule Unknown Completed [facility] HEPATITIS A Unknown Completed [facility] Hep B, Adol or Pedi Dosage Unknown Completed [facility] Influenza Virus Vaccine Unknown Completed [facility] MMR Unknown Completed [facility] Pneumococcal 13 Conjugate, PCV13 (Prevnar 13) Unknown Completed [facility] Polio (IPV/OPV) Unknown Completed [facility] Varicella (varivax)(chicken pox) Unknown Completed [facility] TDAP Unknown Completed [facility] Meningococcal Oligosaccharide (groups A, C, Y and W-135) conjugate vaccine (MCV4O) Unknown Completed [facility] Influenza Virus Vaccine Quad .5 mL IM 6+ MO (FLUZONE/FLULAVAL/FLU ARIX) Unknown Completed [facility] Meningococcal B, OMV Unknown Completed [facility] HPV9 Unknown Completed [facility] DTaP, Unspecified Formulation Unknown Completed [facility] Flu Trivalent Unknown Completed [facility] HIB 3 Dose Schedule Unknown Completed [facility] Meningococcal Polysaccharide (groups A, C, Y and W-135) conjugate vaccine (MCV4P) Unknown Completed [facility] Pneumococcal 7 Conjugate, PCV7 (Prevnar7) Unknown Completed [facility] IPV Unknown Completed [facility] DTAP Unknown Completed [facility] HIB 4 Dose Schedule Unknown Completed [facility] HEPATITIS A Unknown Completed [facility] Hep B, Adol or Pedi Dosage Unknown Completed [facility] Influenza Virus Vaccine Unknown Completed [facility] MMR Unknown Completed [facility] Pneumococcal 13 Conjugate, PCV13 (Prevnar 13) Unknown Completed [facility] Polio (IPV/OPV) Unknown Completed [facility] Varicella (varivax)(chicken pox) Unknown Completed [facility] TDAP Unknown Completed [facility] Meningococcal Oligosaccharide (groups A, C, Y and W-135) conjugate vaccine (MCV4O) Unknown Completed [facility] Influenza Virus Vaccine Quad .5 mL IM 6+ MO (FLUZONE/FLULAVAL/FLU ARIX) Unknown Completed [facility] Meningococcal B, OMV Unknown Completed [facility] HPV9 Unknown Completed [facility] DTaP, Unspecified Formulation Unknown Completed [facility] Flu Trivalent Unknown Completed [facility] HIB 3 Dose Schedule Unknown Completed [facility] Meningococcal Polysaccharide (groups A, C, Y and W-135) conjugate vaccine (MCV4P) Unknown Completed [facility] Pneumococcal 7 Conjugate, PCV7 (Prevnar7) Unknown Completed [facility] IPV Unknown Completed [facility] DTAP Unknown Completed [facility] HIB 4 Dose Schedule Unknown Completed [facility] HEPATITIS A Unknown Completed [facility] Hep B, Adol or Pedi Dosage Unknown Completed [facility] Influenza Virus Vaccine Unknown Completed [facility] MMR Unknown Completed [facility] Pneumococcal 13 Conjugate, PCV13 (Prevnar 13) Unknown Completed [facility] Polio (IPV/OPV) Unknown Completed [facility] Varicella (varivax)(chicken pox) Unknown Completed [facility] TDAP Unknown Completed [facility] Meningococcal Oligosaccharide (groups A, C, Y and W-135) conjugate vaccine (MCV4O) Unknown Completed [facility] Influenza Virus Vaccine Quad .5 mL IM 6+ MO (FLUZONE/FLULAVAL/FLU ARIX) Unknown Completed [facility] Meningococcal B, OMV Unknown Completed [facility] HPV9 Unknown Completed [facility] DTaP, Unspecified Formulation Unknown Completed [facility] Flu Trivalent Unknown Completed [facility] HIB 3 Dose Schedule Unknown Completed [facility] Meningococcal Polysaccharide (groups A, C, Y and W-135) conjugate vaccine (MCV4P) Unknown Completed [facility] Pneumococcal 7 Conjugate, PCV7 (Prevnar7) Unknown Completed [facility] IPV Unknown Completed [facility] DTAP Unknown Completed [facility] HIB 4 Dose Schedule Unknown Completed [facility] HEPATITIS A Unknown Completed [facility] Hep B, Adol or Pedi Dosage Unknown Completed [facility] Influenza Virus Vaccine Unknown Completed [facility] MMR Unknown Completed [facility] Pneumococcal 13 Conjugate, PCV13 (Prevnar 13) Unknown Completed [facility] Polio (IPV/OPV) Unknown Completed [facility] Varicella (varivax)(chicken pox) Unknown Completed [facility] TDAP Unknown Completed [facility] Meningococcal Oligosaccharide (groups A, C, Y and W-135) conjugate vaccine (MCV4O) Unknown Completed [facility] Influenza Virus Vaccine Quad .5 mL IM 6+ MO (FLUZONE/FLULAVAL/FLU ARIX) Unknown Completed [facility] Meningococcal B, OMV Unknown Completed [facility] HPV9 Unknown Completed [facility] DTaP, Unspecified Formulation Unknown Completed [facility] Flu Trivalent Unknown Completed [facility] HIB 3 Dose Schedule Unknown Completed [facility] Meningococcal Polysaccharide (groups A, C, Y and W-135) conjugate vaccine (MCV4P) Unknown Completed [facility] Pneumococcal 7 Conjugate, PCV7 (Prevnar7) Unknown Completed [facility] IPV Unknown Completed [facility] TDAP Unknown Completed [facility] HIB 3 Dose Schedule Unknown Completed [facility] Meningococcal Polysaccharide (groups A, C, Y and W-135) conjugate vaccine (MCV4P) Unknown Completed [facility] DTAP Unknown Completed [facility] HIB 4 Dose Schedule Unknown Completed [facility] HEPATITIS A Unknown Completed [facility] Hep B, Adol or Pedi Dosage Unknown Completed [facility] Influenza Virus Vaccine Unknown Completed [facility] MMR Unknown Completed [facility] Pneumococcal 13 Conjugate, PCV13 (Prevnar 13) Unknown Completed [facility] Polio (IPV/OPV) Unknown Completed [facility] Varicella (varivax)(chicken pox) Unknown Completed [facility] Meningococcal Oligosaccharide (groups A, C, Y and W-135) conjugate vaccine (MCV4O) Unknown Completed [facility] Influenza Virus Vaccine Quad .5 mL IM 6+ MO (FLUZONE/FLULAVAL/FLU ARIX) Unknown Completed [facility] Meningococcal B, OMV Unknown Completed [facility] HPV9 Unknown Completed [facility] DTaP, Unspecified Formulation Unknown Completed [facility] Flu Trivalent Unknown Completed [facility] Pneumococcal 7 Conjugate, PCV7 (Prevnar7) Unknown Completed [facility] IPV Unknown Completed [facility] TDAP Unknown Completed [facility] HIB 3 Dose Schedule Unknown Completed [facility] Meningococcal Polysaccharide (groups A, C, Y and W-135) conjugate vaccine (MCV4P) Unknown Completed [facility] DTAP Unknown Completed [facility] HIB 4 Dose Schedule Unknown Completed [facility] HEPATITIS A Unknown Completed [facility] Hep B, Adol or Pedi Dosage Unknown Completed [facility] Influenza Virus Vaccine Unknown Completed [facility] MMR Unknown Completed [facility] Pneumococcal 13 Conjugate, PCV13 (Prevnar 13) Unknown Completed [facility] Polio (IPV/OPV) Unknown Completed [facility] Varicella (varivax)(chicken pox) Unknown Completed [facility] Meningococcal Oligosaccharide (groups A, C, Y and W-135) conjugate vaccine (MCV4O) Unknown Completed [facility] Influenza Virus Vaccine Quad .5 mL IM 6+ MO (FLUZONE/FLULAVAL/FLU ARIX) Unknown Completed [facility] Meningococcal B, OMV Unknown Completed [facility] HPV9 Unknown Completed [facility] Vital Signs Vital Name Observation Time Observation Value Comments S ource Systolic blood pressure 2023-09-14 21:24:00 101 mm[Hg] [facility] Diastolic blood pressure 2023-09-14 21:24:00 71 mm[Hg] [facility] Heart rate 2023-09-14 21:24:00 87 /min [facility] Body temperature 2023-09-14 21:24:00 36.39 [facility] Respiratory rate 2023-09-14 21:24:00 16 /min [facility] Body height 2023-09-14 21:24:00 160 cm [facility] Body weight 2023-09-14 21:24:00 52.759 kg [facility] BMI 2023-09-14 21:24:00 20.60 kg/m2 [facility] Systolic blood pressure 2023-08-28 20:48:00 97 mm[Hg] [facility] Diastolic blood pressure 2023-08-28 20:48:00 63 mm[Hg] [facility] Heart rate 2023-08-28 20:48:00 88 /min [facility] Body temperature 2023-08-28 20:48:00 36.44 [facility] Body height 2023-08-28 20:48:00 157.5 cm [facility] Body weight 2023-08-28 20:48:00 53.933 kg [facility] BMI 2023-08-28 20:48:00 21.75 kg/m2 [facility] Oxygen saturation in Arterial blood by Pulse oximetry 2023-08-28 20:48:00 99 /min [facility] Systolic blood pressure 2023-08-02 16:50:00 116 mm[Hg] [facility] Diastolic blood pressure 2023-08-02 16:50:00 71 mm[Hg] [facility] Heart rate 2023-08-02 16:50:00 68 /min [facility] Body temperature 2023-08-02 16:50:00 36.61 [facility] Body height 2023-08-02 16:50:00 162.6 cm [facility] Body weight 2023-08-02 16:50:00 53.116 kg [facility] BMI 2023-08-02 16:50:00 20.10 kg/m2 [facility] Systolic blood pressure 2023-04-13 15:58:00 108 mm[Hg] [facility] Diastolic blood pressure 2023-04-13 15:58:00 70 mm[Hg] [facility] Heart rate 2023-04-13 15:58:00 76 /min [facility] Body temperature 2023-04-13 15:58:00 36.67 [facility] Respiratory rate 2023-04-13 15:58:00 16 /min [facility] Body weight 2023-04-13 15:58:00 56.019 kg [facility] Oxygen saturation in Arterial blood by Pulse oximetry 2023-04-13 15:58:00 98 /min [facility] Systolic blood pressure 2023-02-27 16:37:00 104 mm[Hg] [facility] Diastolic blood pressure 2023-02-27 16:37:00 58 mm[Hg] [facility] Heart rate 2023-02-27 16:37:00 64 /min [facility] Body temperature 2023-02-27 16:37:00 35.89 [facility] Respiratory rate 2023-02-27 16:37:00 18 /min [facility] Body weight 2023-02-27 16:37:00 56.246 kg [facility] Systolic blood pressure 2022-12-21 14:19:00 114 mm[Hg] [facility] Diastolic blood pressure 2022-12-21 14:19:00 79 mm[Hg] [facility] Heart rate 2022-12-21 14:19:00 88 /min [facility] Body temperature 2022-12-21 14:19:00 35.94 [facility] Body height 2022-12-21 14:19:00 162.6 cm [facility] Body weight 2022-12-21 14:19:00 58.242 kg [facility] BMI 2022-12-21 14:19:00 22.04 kg/m2 [facility] Systolic blood pressure 2022-12-07 17:27:00 118 mm[Hg] [facility] Diastolic blood pressure 2022-12-07 17:27:00 80 mm[Hg] [facility] Heart rate 2022-12-07 17:27:00 106 /min [facility] Body temperature 2022-12-07 17:27:00 36.39 [facility] Respiratory rate 2022-12-07 17:27:00 18 /min [facility] Body height 2022-12-07 17:27:00 162.6 cm [facility] Body weight 2022-12-07 17:27:00 58.015 kg [facility] BMI 2022-12-07 17:27:00 21.95 kg/m2 [facility] Oxygen saturation in Arterial blood by Pulse oximetry 2022-12-07 17:27:00 100 /min [facility] Systolic blood pressure 2022-04-07 20:16:00 122 mm[Hg] [facility] Diastolic blood pressure 2022-04-07 20:16:00 64 mm[Hg] [facility] Heart rate 2022-04-07 20:16:00 68 /min [facility] Body temperature 2022-04-07 20:16:00 36.67 [facility] Respiratory rate 2022-04-07 20:16:00 18 /min [facility] Body weight 2022-04-07 20:16:00 58.514 kg [facility] Procedures Procedure Date / Time Performed Performing Clinician Source POCT MOLECULAR FLU 2023-09-14 21:18:00 Gabi Palmer [facility] US ABDOMEN COMPLETE 2023-08-28 22:52:28 Sanjay Dyer [facility] XR KUB 2023-08-28 22:19:28 [facility] POCT TEST 2023-08-28 21:44:00 Sanjay Dyer [facility] GALV ONLY - VAGINAL PATHOGENS BY NUCLEIC ACID TESTING 2023-08-28 21:39:00 Christina Dyer [facility] POCT URINALYSIS 2023-08-28 00:00:00 Christina Dyer [facility] CBC (INCLUDES DIFF/PLT)-Q 2023-04-13 16:36:00 Yamilet Palmer [facility] POCT TEST 2023-04-13 00:00:00 Lissett Palmer [facility] ASSIGNMENT OF BENEFITS 2023-02-27 16:30:56 Docto r Unassigned, [place] [facility] POCT URINALYSIS 2023-02-27 00:00:00 Garima Gayle [facility] AUTHORIZATION FOR RELEASE OF PHI 2022-12-21 06:01:00 Doctor Unassigned, [place] [facility] POCT TEST 2022-12-21 00:00:00 Khoa Villa [facility] PATIENT FINANCIAL POLICY 2022-12-07 18:42:53 Doctor Unassigned, [place] [facility] POCT MOLECULAR FLU 2022-12-07 17:38:00 Gabi Palmer [facility] POCT MOLECULAR STREP 2022-12-07 17:37:00 Reymundo Palmer [facility] Encounters Start Date/Time End Date/Time Encounter Type Admission Type Attending [facility] Facility Care Department Encounter ID Source 2022-07-13 13:56:32 Outpatient CHW [id number] [facility] 2021-08-12 02:41:57 Outpatient DAVION BOX [facility] [id number] [facility] 2021-08-11 11:29:07 Outpatient DAVION BOX [facility] [id number] [facility] 2024-08-06 11:00:00 2024-08-06 11:00:00 Outpatient ESTRELLITA CHAMPAGNE KIMBERLYN [facility] [id number] [facility] 2023-09-14 15:00:00 2023-09-14 15:30:00 Office Visit Yamilet [facility] [id number] 350.1.13.10 4.2.7.2.686 [id number] [facility] [id number] [facility] 2023-09-14 15:00:00 2023-09-14 15:00:00 Outpatient YAMILET RAYMUNDO [facility] [id number] [facility] 2023-09-04 13:20:00 2023-09-04 13:20:00 Outpatient R CHRISTINA DYER UZOMA [facility] [id number] [facility] 2023-08-28 16:20:35 2023-08-28 23:59:00 Hospital Encounter Obi-Roel , [facility] [id number] 350.1.13.10 4.2.7.2.686 [id number] [facility] 2023-08-28 15:31:21 2023-08-28 16:19:00 Hospital Encounter Devin [facility] [id number] 350.1.13.10 4.2.7.2.686 [id number] [facility] 2023-08-28 14:40:00 2023-08-28 15:46:38 Outpatient R CHRISTINA DYER [facility] [id number] [facility] 2023-08-28 14:40:00 2023-08-28 15:46:38 Office Visit Devin [facility] BU[facility] [id number] 350.1.13.10 4.2.7.2.686 [id number] [facility] 2023-08-28 15:30:00 2023-08-28 15:45:00 Can Technician Visit Pob, Adc Lab Main Devin [facility] BUILDING [id number] 350.1.13.10 4.2.7.2.686 [id number] [facility] 2023-08-28 00:00:00 2023-08-28 00:00:00 Letter (Out) Devin [facility]ING [id number] 350.1.13.10 4.2.7.2.686 [id number] [facility] 2023-08-17 00:00:00 2023-08-17 00:00:00 Patient Secure Estrellita Santoro [facility] 1.84.114 350.1.13.10 4.2.7.2.686 [id number] [facility] 2023-08-02 11:30:00 2023-08-02 12:27:18 Outpatient R ESTRELLITA VILLA [facility] [id number] [facility] 2023-08-02 11:30:00 2023-08-02 12:27:18 Office Visit Estrellita Villa [facility] 1..114 350.1.13.10 4.2.7.2.686 [id number] [facility] 2023-08-01 00:00:00 2023-08-01 00:00:00 Pre Visit Outreach Pia Jacobson 1.114 350.1.13.10 4.2.7.2.686 [id number] [facility] 2023-05-22 16:15:00 2023-05-22 16:15:00 Outpatient R KEITH GU [facility] [id number] [facility] 2023-04-14 00:00:00 2023-04-14 00:00:00 Patient Secure Msg Yamilet [facility] 1.114 350.1.13.10 4.2.7.2.686 [id number] [facility] 2023-04-13 11:00:00 2023-04-13 11:44:52 Outpatient R YAMILET PALMER [facility] [id number] [facility] 2023-04-13 11:00:00 2023-04-13 11:44:52 Office Visit Yamilet Palmer [facility] 1.114 350.1.13.10 4.2.7.2.686 [id number] [facility] 2023-04-13 00:00:00 2023-04-13 00:00:00 Orders Only Yamilet Palmer [facility] 1..114 350.1.13.10 4.2.7.2.686 [id number] [facility] 2023-02-27 11:30:00 2023-02-27 12:46:57 Outpatient R GARIMA GAYLE [facility] [id number] [facility] 2023-02-27 11:30:00 2023-02-27 12:46:57 Office Visit Garima Gayle [facility] 1.114 350.1.13.10 4.2.7.2.686 [id number] [facility] 2023-02-27 00:00:00 2023-02-27 00:00:00 Orders Only Doctor Unassigned, [place] [facility] 1..114 350.1.13.10 4.2.7.2.686 [id number] [facility] 2022-12-21 08:00:00 2022-12-21 08:59:57 Outpatient R ESTRELLITA VILLA [facility] [id number] [facility] 2022-12-21 08:00:00 2022-12-21 08:59:57 Office Visit Estrellita Villa [facility] 1..114 350.1.13.10 4.2.7.2.686 [id number] [facility] 2022-12-21 00:00:00 2022-12-21 00:00:00 Orders Only Doctor Unassigned, [place] [facility] 1..114 350.1.13.10 4.2.7.2.686 [id number] [facility] 2022-12-07 11:30:00 2022-12-07 12:00:00 Office Visit Yamilet Palmer [facility] 1..114 350.1.13.10 4.2.7.2.686 [id number] [facility] 2022-12-07 11:30:00 2022-12-07 11:30:00 Outpatient R PALMER, MARIA [facility] [id number] [facility] 2022-12-07 00:00:00 2022-12-07 00:00:00 Orders Only Doctor Unassigned, [place] [facility] 1.114 350.1.13.10 4.2.7.2.686 [id number] [facility] 2022-06-05 16:14:00 2022-06-05 19:43:00 Emergency EM Michael Eric [facility] QUIANA [id number] 93 [facility] 2022-04-07 15:15:00 2022-04-07 15:42:17 Outpatient R GARIMA GAYLE [facility] [id number] [facility] 2022-04-07 15:15:00 2022-04-07 15:42:17 Office Visit [facility] 1.114 350.1.13.10 4.2.7.2.686 [id number] [facility] 2022-04-07 15:15:00 2022-04-07 15:42:17 Outpatient R GARIMA GAYLE [facility] [id number] [facility] 2022-02-07 00:00:00 2022-02-07 00:00:00 Refill [facility] 1..114 350.1.13.10 4.2.7.2.686 [id number] [facility] 2022-01-13 15:15:00 2022-01-13 16:36:03 Outpatient R GARIMA GAYLE [facility] [id number] [facility] 2022-01-13 15:15:00 2022-01-13 16:36:03 Office Visit Garima [facility] 1.840.114 350.1.13.10 4.2.7.2.686 [id number] [facility] 2022-01-13 00:00:00 2022-01-13 00:00:00 Orders Only Doctor Unassigned, [place] [facility] 1.2840.114 350.1.13.10 4.2.7.2.686 [id number] [facility] 2021-11-03 00:00:00 2021-11-03 00:00:[address] [facility] 1..840.114 350.1.13.10 4.2.7.2.686 [id number] [facility] 2021-05-09 00:00:00 2021-05-09 00:00:00 [facility] 1.2.840.114 350.1.13.10 4.2.7.2.686 [id number] [facility] 2021-02-02 00:00:00 2021-02-02 00:00:00 Outpatient Helder lAfredo [facility] [id number] [facility] 2020-12-29 13:00:00 2020-12-29 13:00:00 Outpatient Kathryn ROSEN DELBERT [facility] [id number] [facility] 2020-10-31 00:00:00 2020-10-31 [facility] 1..840.114 350.1.13.10 4.2.7.2.686 [id number] [facility] 2020-09-20 09:00:00 2020-09-20 09:00:00 Outpatient R EFREM RASHID [facility] [id number] [facility] 2020-07-16 13:31:59 2020-07-16 13:46:59 Office Visit [facility] 1..840.114 350.1.13.10 4.2.7.2.686 [id number] [facility] 2020-07-16 13:30:00 2020-07-16 13:30:00 Outpatient R RUDIMETHODIST JENNIE EDMUNDSON [id number] [facility] 2020-07-16 00:00:00 2020-07-16 00:00:00 Letter (Out) [facility] 1..840.114 350.1.13.10 4.2.7.2.686 [id number] [facility] 2020-07-15 14:40:00 2020-07-15 23:59:00 Hospital Encounter Davion Mercado [facility] 1..840.114 350.1.13.10 4.2.7.2.686 [id number] [facility] 2020-07-05 00:00:00 2020-07-05 00:00:00 Outpatient DAVION BOX [facility] [id number] [facility] 2020-07-02 00:00:00 2020-07-02 00:00:00 Orders Only Doctor Unassigned, [place] [facility] 1.840.114 350.1.13.10 4.2.7.2.686 [id number] [facility] 2020-05-19 13:05:00 2020-05-19 13:05:00 Outpatient Helder Alfredo Demar [facility] [id number] [facility] 2020-05-05 00:00:00 2020-05-05 00:00:00 Outpatient JuniHelder W CHW [id number] [facility] 2020-04-27 00:00:00 2020-04-27 00:00:00 Telephone Delbert Rosen [facility] 1.2.840.114 350.1.13.10 4.2.7.2.686 [id number] [facility] 2020-04-27 00:00:00 2020-04-27 00:00:00 Orders Only Doctor Unassigned, [place] [facility] 1.2.840.114 350.1.13.10 4.2.7.2.686 [id number] [facility] 2020-04-26 00:00:00 2020-04-26 00:00:00 Patient Secure Msg Doctor Unassigned, [place] [facility] 1.2840.114 350.1.13.10 4.2.7.2.686 [id number] [facility] 2020-04-26 00:00:00 2020-04-26 00:00:00 Patient Secure Msg Davion Mercado [facility] 1.2.840.114 350.1.13.10 4.2.7.2.686 [id number] [facility] 2020-04-23 14:21:33 2020-04-23 14:36:33 Laboratory Only Only, Vtc Test Davion Mercado [facility] 1.0.114 350.1.13.10 4.2.7.2.686 [id number] [facility] 2020-04-23 14:00:00 2020-04-23 14:00:00 Outpatient R DAVION MERCADO [facility] [id number] [facility] 2020-04-22 00:00:00 2020-04-22 00:00:00 Telephone Coblens, [facility] 1.2.840.114 350.1.13.10 4.2.7.2.686 [id number] [facility] 2020-04-14 13:15:00 2020-04-14 13:15:00 Outpatient R DELBERT ROSEN [facility] [id number] [facility] 2020-04-14 00:00:00 2020-04-14 00:00:00 [facility] 1.2.840.114 350.1.13.10 4.2.7.2.686 [id number] [facility] 2020-04-09 13:37:48 2020-04-09 14:44:59 Office Visit Melissa [facility] 1.2.840.114 350.1.13.10 4.2.7.2.686 [id number] [facility] 2020-04-09 13:45:00 2020-04-09 13:45:00 Outpatient R DELBERT ROSEN [facility] [id number] [facility] 2020-04-06 00:00:00 2020-04-06 00:00:00 Telephone Davion Mercado [facility] [address] 1.2.840.114 350.1.13.10 4.2.7.2.686 [id number] [facility] 2020-03-26 00:00:00 2020-03-26 00:00:00 Telephone Davion Mercado [facility] [address] 1.2.840.114 350.1.13.10 4.2.7.2.686 [id number] [facility] 2020-02-04 00:00:00 2020-02-04 00:00:00 Telephone Davion Mercado [facility] [address] 1.2.840.114 350.1.13.10 4.2.7.2.686 [id number] [facility] 2020-01-01 00:00:00 2020-01-01 00:00:00 Telephone Davion Mercado [facility] 1.2.840.114 350.1.13.10 4.2.7.2.686 [id number] [facility] 2019-12-23 00:00:00 2019-12-23 00:00:00 Telephone Davion Mercado [facility] 1.2.840.114 350.1.13.10 4.2.7.2.686 [id number] [facility] 2019-12-16 00:00:00 2019-12-16 00:00:00 Telephone Davion Mercado [facility] 1.2.840.114 350.1.13.10 4.2.7.2.686 [id number] [facility] 2019-12-12 00:00:00 2019-12-12 00:00:00 Patient Secure Msg Doctor Unassigned, [place] [facility] 1.2.840.114 350.1.13.10 4.2.7.2.686 [id number] [facility] 2019-12-10 15:56:36 2019-12-10 16:11:36 Office Visit Davion Mercado [facility] 1.2.840.114 350.1.13.10 4.2.7.2.686 [id number] [facility] 2019-12-10 16:00:00 2019-12-10 16:00:00 Outpatient R DAVION MERCADO [facility] [id number] [facility] 2019-12-10 00:00:00 2019-12-10 00:00:00 Orders Only Doctor Unassigned, [place] [facility] 1.2.840.114 350.1.13.10 4.2.7.2.686 [id number] [facility] 2019-12-03 16:42:00 2019-12-03 23:59:00 Hospital Encounter Davion Mercado [facility] 1.2.840.114 350.1.13.10 4.2.7.2.686 [id number] [facility] 2019-12-03 16:41:11 2019-12-03 16:41:00 Outpatient R DAVION MERCADO [facility] [id number] [facility] 2019-12-03 16:40:00 2019-12-03 16:41:00 Hospital Encounter Davion Mercado [facility] 1.2.840.114 350.1.13.10 4.2.7.2.686 [id number] [facility] 2019-11-25 00:00:00 2019-11-25 00:00:00 Letter (Out) Davion Mercado [facility] 1.2.840.114 350.1.13.10 4.2.7.2.686 [id number] [facility] 2019-11-24 15:14:42 2019-11-24 16:03:05 Office Visit Davion Mercado [facility] 1.2.840.114 350.1.13.10 4.2.7.2.686 [id number] [facility] 2019-11-14 16:36:00 2019-11-14 17:26:27 Office Visit Katerine [facility] 1.2.840.114 350.1.13.10 4.2.7.2.686 [id number] [facility] 2019-11-07 15:33:22 2019-11-07 16:15:28 Office Visit Yamilet Alex [facility] 1.2.840.114 350.1.13.10 4.2.7.2.686 [id number] [facility] 2019-10-30 09:20:52 2019-10-30 09:22:07 Office Visit Yamilet Alex Sj [facility] 1.2.840.114 350.1.13.10 4.2.7.2.686 [id number] [facility] 2019-10-30 00:00:00 2019-10-30 00:00:00 Orders Only Doctor Unassigned, [place] [facility] 1.2.840.114 350.1.13.10 4.2.7.2.686 [id number] [facility] 2019-10-27 00:00:00 2019-10-27 00:00:00 Telephone Yamilet Alex [facility] 1.2.840.114 350.1.13.10 4.2.7.2.686 [id number] [facility] 2019-10-21 13:23:14 2019-10-21 15:57:00 Emergency X JW DIOGO [facility] ERT [id number] [facility] 2019-06-11 12:58:27 2019-06-11 14:34:25 Office Visit Yamilet Alex [facility] 1.2.840.114 350.1.13.10 4.2.7.2.686 [id number] [facility] Results Test Description Test Time Test Comments Results Result Co mments Source [facility] MOLECULAR [id number] 21:21:42* Test Item Value Reference Range Interpretation Comme nts POCT Molecular FluA (test co de = 19504-0) Positive Negative A Lab Interpretation (test cod e = 95278-0) Abnormal [facility] URINALYSIS W SPECIFIC [id number] 21:50:00* Test Item Value Reference Range Interpretation Comme nts POCT U SP GRAV (test code = 3255) 1.030 mg/dl 1.005-1.025 A POCT PH U (test code = 3254) 5 mg/dl 5-8 POCT U LEUK EST (test code = 3263) neg Negative - Negative POCT U NIT (test code = 3262) neg Negative - Negative POCT U PROT (test code = 3259) neg Negative - Negative POCT U GLU (test code = 3256) neg Negative - Negative POCT U KETONE (test code = 3258) neg Negative - Negative POCT U UROBILI (test code = 3260) neg 0.2-1 POCT U BILI (test code = 3261) neg Negative - Negative POCT U BLD (test code = 3257) positive Negative - Negative 250 POCT U COLOR (test code = 3266) POCT U APPEAR (test code = 3267) Lab Interpretation (test code = 13036-3) Abnormal [facility] URINALYSIS W SPECIFIC [id number] 21:50:00* Test Item Value Reference Range Interpretation Comme nts POCT U SP GRAV (test code = 3255) 1.030 mg/dl 1.005-1.025 A POCT PH U (test code = 3254) 5 mg/dl 5-8 POCT U LEUK EST (test code = 3263) neg Negative - Negative POCT U NIT (test code = 3262) neg Negative - Negative POCT U PROT (test code = 3259) neg Negative - Negative POCT U GLU (test code = 3256) neg Negative - Negative POCT U KETONE (test code = 3258) neg Negative - Negative POCT U UROBILI (test code = 3260) neg 0.2-1 POCT U BILI (test code = 3261) neg Negative - Negative POCT U BLD (test code = 3257) positive Negative - Negative 250 POCT U COLOR (test code = 3266) POCT U APPEAR (test code = 3267) Lab Interpretation (test code = 92426-2) Abnormal [facility] [id number] 21:44:00* Test Item Value Reference Range Interpretation Comme nts POCT PREG (test code = 1605) Negative On board controls acceptable with C Line (test code = 3574) Yes POCT PREG LOT # (test code = 3575) POCT PREG TEST DATE ( test code = 3576) [facility] [id number] 21:44:00* Test Item Value Reference Range Interpretation Comme nts POCT PREG (test code = 1605) Negative On board controls acceptable with C Line (test code = 3574) Yes POCT PREG LOT # (test code = 3575) POCT PREG TEST DATE ( test code = 3576) [facility] (INCLUDES DIFF/[id number] 10:00:00* Test Item Value Reference Range Interpretation Comme [facility] WHITE BLOOD CELL COUNT-Q (test code = 6690-2) 11.6 See_Comment H [Automated message] The system which generated this result transmitted reference range: 3.8 - 10.8 Thousand/uL. The reference range was not used to interpret this result as normal/abnormal. RED BLOOD CELL COUNT-Q (test code = 789-8) 4.57 See_Comment [Automated message] The system which generated this result transmitted reference range: 3.80 - 5.10 Million/uL. The reference range was not used to interpret this result as normal/abnormal. HEMOGLOBIN-Q (test code = 718-7) 14.1 g/dL 11.7-15.5 HEMATOCRIT-Q (test code = 4544-3) 40.1 % 35.0-45.0 MCV-Q (test code = 787-2) 87.7 fL 80.0-100.0 MCH-Q (test code = 785-6) 30.9 pg 27.0-33.0 MCHC-Q (test code = 786-4) 35.2 g/dL 32.0-36.0 RDW-Q (test code = 788-0) 12.6 % 11.0-15.0 PLATELET COUNT-Q (test code = 777-3) 250 See_Comment [Automated message] The system which generated this result transmitted reference range: 140 - 400 Thousand/uL. The reference range was not used to interpret this result as normal/abnormal. MPV-Q (test code = 776-5) 11.6 fL 7.5-12.5 ABSOLUTE NEUTROPHILS-Q (test code = 751-8) [id number] See_Comment H [Automated message] The system which generated this result transmitted reference range: 1500 - 7800 cells/uL. The reference range was not used to interpret this result as normal/abnormal. ABSOLUTE LYMPHOCYTES-Q (test code = 731-0) 673 See_Comment L [Automated message] The system which generated this result transmitted reference range: 850 - 3900 cells/uL. The reference range was not used to interpret this result as normal/abnormal. ABSOLUTE MONOCYTES-Q (test code = 742-7) 882 See_Comment [Automated message] The system which generated this result transmitted reference range: 200 - 950 cells/uL. The reference range was not used to interpret this result as normal/abnormal. ABSOLUTE EOSINOPHILS-Q (test code = 711-2) 0 See_Comment L [Automated message] The system which generated this result transmitted reference range: 15 - 500 cells/uL. The reference range was not used to interpret this result as normal/abnormal. ABSOLUTE BASOPHILS-Q (test code = 704-7) 23 See_Comment [Automated message] The system which generated this result transmitted reference range: 0 - 200 cells/uL. The reference range was not used to interpret this result as normal/abnormal. NEUTROPHILS-Q (test code = 770-8) 86.4 % LYMPHOCYTES-Q (test code = 736-9) 5.8 % MONOCYTES-Q (test code = 5905-5) 7.6 % EOSINOPHILS-Q (test code = 713-8) 0.0 % BASOPHILS-Q (test code = 706-2) 0.2 % SAGAR (test code = SAGAR) PERFORMED BY [employer] [place]; [address] [place] [id number]; JAMIL BELLA MD,PHD. Lab Interpretation (test code = 58246-8) Abnormal [facility] [id number] 16:54:00* Test Item Value Reference Range Interpretation Comme nts POCT PREG (test code = 1605) Negative On board controls acceptable with C Line (test code = 3574) Yes POCT PREG LOT # (test code = 3575) [id number] POCT PREG TEST DATE ( test code = 3576) 02/12/24 [facility] [id number] 16:54:00* Test Item Value Reference Range Interpretation Comme nts POCT PREG (test code = 1605) Negative On board controls acceptable with C Line (test code = 3574) Yes POCT PREG LOT # (test code = 3575) [id number] POCT PREG TEST DATE ( test code = 3576) 02/12/24 [facility] URINALYSIS W SPECIFIC [id number] 16:59:00* Test Item Value Reference Range Interpretation Comme nts POCT U SP GRAV (test code = 3255) 1.030 mg/dl 1.005-1.025 A POCT PH U (test code = 3254) 5 mg/dl 5-8 POCT U LEUK EST (test code = 3263) ++ Negative - Negative POCT U NIT (test code = 3262) NEG Negative - Negative POCT U PROT (test code = 3259) 30 Negative - Negative POCT U GLU (test code = 3256) NORM Negative - Negative POCT U KETONE (test code = 3258) +++ Negative - Negative POCT U UROBILI (test code = 3260) 8 mg/dl 0.2-1 A POCT U BILI (test code = 3261) +++ Negative - Negative POCT U BLD (test code = 3257) [id number] Negative - Negative POCT U COLOR (test code = 3266) VANIA POCT U APPEAR (test code = 3267) CLOUDY SAGAR (test code = SAGAR) accurate developme nt and interpretation of all internal controls Lab Interpretation (test code = 47071-7) Abnormal [facility] URINALYSIS W SPECIFIC [id number] 16:59:00* Test Item Value Reference Range Interpretation Comme nts POCT U SP GRAV (test code = 3255) 1.030 mg/dl 1.005-1.025 A POCT PH U (test code = 3254) 5 mg/dl 5-8 POCT U LEUK EST (test code = 3263) ++ Negative - Negative POCT U NIT (test code = 3262) NEG Negative - Negative POCT U PROT (test code = 3259) 30 Negative - Negative POCT U GLU (test code = 3256) NORM Negative - Negative POCT U KETONE (test code = 3258) +++ Negative - Negative POCT U UROBILI (test code = 3260) 8 mg/dl 0.2-1 A POCT U BILI (test code = 3261) +++ Negative - Negative POCT U BLD (test code = 3257) [id number] Negative - Negative POCT U COLOR (test code = 3266) VANIA POCT U APPEAR (test code = 3267) CLOUDY SAGAR (test code = SAGAR) accurate developme nt and interpretation of all internal controls Lab Interpretation (test code = 84468-7) Abnormal [facility] URINALYSIS W SPECIFIC [id number] 16:59:00* Test Item Value Reference Range Interpretation Comme nts POCT U SP GRAV (test code = 3255) 1.030 mg/dl 1.005-1.025 A POCT PH U (test code = 3254) 5 mg/dl 5-8 POCT U LEUK EST (test code = 3263) ++ Negative - Negative POCT U NIT (test code = 3262) NEG Negative - Negative POCT U PROT (test code = 3259) 30 Negative - Negative POCT U GLU (test code = 3256) NORM Negative - Negative POCT U KETONE (test code = 3258) +++ Negative - Negative POCT U UROBILI (test code = 3260) 8 mg/dl 0.2-1 A POCT U BILI (test code = 3261) +++ Negative - Negative POCT U BLD (test code = 3257) [id number] Negative - Negative POCT U COLOR (test code = 3266) VANIA POCT U APPEAR (test code = 3267) CLOUDY SAGAR (test code = SAGAR) accurate developme nt and interpretation of all internal controls Lab Interpretation (test code = 41689-2) Abnormal [facility] [id number] 15:06:00* Test Item Value Reference Range Interpretation Comme nts POCT PREG (test code = 1605) Negative On board controls acceptable with C Line (test code = 3574) Yes POCT PREG LOT # (test code = 3575) POCT PREG TEST DATE ( test code = 3576) [id number] 15:06:00* Test Item Value Reference Range Interpretation Comme nts POCT PREG (test code = 1605) Negative On board controls acceptable with C Line (test code = 3574) Yes POCT PREG LOT # (test code = 3575) POCT PREG TEST DATE ( test code = 3576) [facility] MOLECULAR [id number] 17:50:31* Test Item Value Reference Range Interpretation Comme nts POCT Molecular FluA (test co de = 91643-9) Negative Negative POCT Molecular FluB (test co de = 61022-2) Negative Negative Lab Interpretation (test cod e = 02772-3) Normal [facility] MOLECULAR [id number] 17:50:31* Test Item Value Reference Range Interpretation Comme nts POCT Molecular FluA (test co de = 31159-6) Negative Negative POCT Molecular FluB (test co de = 77456-1) Negative Negative Lab Interpretation (test cod e = 77985-3) Normal [facility] MOLECULAR [id number] 17:45:08* Test Item Value Reference Range Interpretation Comme nts POCT Molecular Strep (test c ode = 44081-3) Negative Negative Lab Interpretation (test cod e = 38097-4) Normal [facility] MOLECULAR [id number] 17:45:08* Test Item Value Reference Range Interpretation Comme nts POCT Molecular Strep (test c ode = 33447-1) Negative Negative Lab Interpretation (test cod e = 09355-4) Normal [facility] METABOLIC [id number] 18:23:00* Test Item Value Reference Range Interpretation Comme nts SODIUM (test code = NA) 139 mEq/L 134-147 N POTASSIUM (test code = K) 3.8 mEq/L 3.4-5.0 N CHLORIDE (test code = CL) 109 mEq/L 100-108 H CARBON DIOXIDE (test code = CO2) 23 mEq/l 21-33 N ANION GAP (test code = GAP) 11 0-20 N GLUCOSE (test code = GLU) 84 mg/dL 70-110 N BLOOD UREA NITROGEN (test code = BUN) 8 mg/dL 7-18 N GLOMERULAR FILTRATION RATE (test code = GFR) 80.7 110-120 L Units of measure = ml/min/1.73 m2 CREATININE (test code = CREAT) 0.9 mg/dL 0.6-1.3 N CALCIUM (test code = CA) 9.0 mg/dL 8.0-10.5 N HCG [id number] 18:23:00* Test Item Value Reference Range Interpretation Comme nts HCG SERUM (test code = HCG) < 2.6 0 - 6 NOT PREGNA NT > 6 SUGGESTIVE OF EARLY RISES TWO FOLD EVERY 2 DAYS; SUGGEST RECONFIRMING AFTER 2 DAYS. 150,000-200,[address] TRIMESTER 10,000 - 50,000 2ND & 3RD TRIMESTERResults in bertrand-International Units/mL CBC W/AUTO [id number] 18:11:00* Test Item Value Reference Range Interpretation Comme nts WHITE BLOOD CELL (test code = WBC) 7.3 x10 3/uL 4.5-11.0 N RED BLOOD CELL (test code = RBC) 4.53 x10 6/uL 3.54-5.02 N HEMOGLOBIN (test code = HGB) 14.0 g/dL 11.0-15.0 N HEMATOCRIT (test code = HCT) 40.1 % 33.0-45.0 N MEAN CELL VOLUME (test code = MCV) 88.5 fL 81.0-99.0 N MEAN CELL HGB (test code = MCH) 30.9 pg 27.0-33.0 N MEAN CELL HGB CONCETRATION (test code = MCHC) 34.9 g/dL 33.0-37.0 N RED CELL DISTRIBUTION WIDTH CV (test code = RDW) 12.4 % 11.5-14.5 N RED CELL DISTRIBUTION WIDTH SD (test code = RDW-SD) 40.2 fL 37.0-54.0 N PLATELET COUNT (test code = PLT) 305 x10 3/uL 150-400 N MEAN PLATELET VOLUME (test c ode = MPV) 9.9 fL 7.0-9.0 H NEUTROPHIL % (test code = NT%) 53.8 % 56.0-77.0 L IMMATURE GRANULOCYTE % (test code = IG%) 0.3 % 0.0-2.0 N LYMPHOCYTE % (test code = LY%) 39.3 % 14.0-32.0 H MONOCYTE % (test code = MO%) 5.9 % 4.8-9.0 N EOSINOPHIL % (test code = EO%) 0.4 % 0.3-3.7 N BASOPHIL % (test code = BA%) 0.3 % 0.0-2.0 N NUCLEATED RBC % (test code = NRBC%) 0.0 % 0-0 N NEUTROPHIL # (test code = NT#) 3.90 x10 3/uL 2.0-7.6 N IMMATURE GRANULOCYTE # (test code = IG#) 0.02 x10 3/uL 0.00-0.03 N LYMPHOCYTE # (test code = LY#) 2.85 x10 3/uL 1.0-3.8 N MONOCYTE # (test code = MO#) 0.43 x10 3/uL 0.1-0.8 N EOSINOPHIL # (test code = EO#) 0.03 x10 3/uL 0.0-0.2 N BASOPHIL # (test code = BA#) 0.02 x10 3/uL 0.0-0.2 N NUCLEATED RBC # (test code = NRBC#) 0.00 x10 3/uL 0.0-0.1 N MANUAL DIFF REQUIRED (test c ode = MDIFF) NO - US PELVIS [id number] 00:00:00 [facility] DINOSAURName: EDIN ACUÑA : 2000 Sex: F Name: EDIN ACUÑA [facility] [place] : 2000 Age/S: 21 / F [address] [place] [address] Unit #: [id number] Loc: [place] [address] Phys: Sapna Huerta APRNNP Acct: [id number] Dis Date: Status: REGER PHONE #: [phone] Exam Date: 06/05/2022 173 FAX #: [phone] Reason: Pelvic Pain, vag bleeding, pos test a EXAMS: CPT CODE: [id number] US PELVIS COMPLETE [id number] PROCEDURE INFORMATION: Exam: US Pelvis Complete (Transabdominal), Pelvis (Transvaginal), and US Duplex Artery or Vein (Ovaries) Limited Exam date and time: 06/05/2022 5:04 PM Age: 21 years old Clinical indication: Pelvicpain; Additional info: Pelvic pain, vag bleeding, pos test at home; () TECHNIQUE: Imagingprotocol: Real-time transabdominal and transvaginal pelvic ultrasound (complete) with image document ation. Transvaginal imaging was used for better evaluation of the endometrium, adnexa, and/or cervix. Real-time duplex ultrasound scan of the arterial or venous flow of the ovaries with B-mode, colorDoppler flow and spectral waveform analysis. Complete Pelvis, Limited Duplex. COMPARISON: No relevant prior studies available. FINDINGS: Uterus: Uterus measures 7.0 cm length. Endometrial stripe measures 0.2 cm thickness. Cervix: Heterogeneous fluid in the endocervical canal. Gestation: No intrauterine gestational sac, yolk sac or embryo is seen. Right ovary/adnexa: Right ovary measures 3.3 x 2.2x 2.5 cm and contains a 2.2 cm dominant follicle or corpus luteal cyst. Doppler flow is present. Left ovary/adnexa: Left ovary measures 2.0 x 1.1 x 2.0 cm with Doppler flow. Intraperitoneal space: Nointraperitoneal fluid. Urinary bladder: The bladder is under distended. IMPRESSION: 1. No intrauterine gestational sac identified. If the patient has a positive beta hCG, findings are consistent with" of unknown location" with differential diagnosis including early , nonviable , spontaneous or ectopic . 2. Heterogeneous fluid in the endometrial canal may reflect hemorrhagic debris. at 3350 Reported and signed by: Mitchell Ponce M.D. PAGE 1 Signed Report (CONTINUED) Name: DOMENICOEDIN [facility] : 2000 Age/S: 21 / F [address] [place] [address] Unit #: [id number] Loc: Eze BRYCE [address] Phys: FebruarySapna ROLF Acct: [id number] Dis Date: Status: REG ER PHONE #: [phone] Date: 06/05/20221731 FAX #: [phone] Reason: Pelvic Pain, vag bleeding, pos test a EXAMS: CPT CODE: [id number] US PELVIS COMPLETE 52382 (Continued) CC: Sapna Huerta Technologist: Dionisio Lemon Trnalb Date/Time: 06/05/2022 (1746) SulyTTV Orig Print D/T: S: 06/05/2022 (1746) Probe: PAGE 2 Signed Report- US TRANSVAGINAL NON [id number] 00:00:00 [facility] 2000 Sex: F Name: EDIN ACUÑA [facility] : 2000 Age/S: 21 / F [address] [place] [address] Unit #:[id number] Loc: BRY[place] Loo [address] Phys: Sapna Huerta Brenden BANSAL Acct: [id number] Dis Date: Status: REG ER PHONE #: [phone] Exam Date: 06/05/20221731 FAX #: [phone] Reason: see US PREG 1st TRIMTR EXAMS: CPT CODE: [id number] [place] [address] PROCEDURE INFORMATION: Exam: US PelvisComplete (Transabdominal), Pelvis (Transvaginal), and US Duplex Artery or Vein (Ovaries) Limited Exam date and time: 06/05/2022 5:04 PM Age: 21 years old Clinical indication: Pelvic pain; Additional info: Pelvic pain, vag bleeding, pos test at home; () TECHNIQUE: Imaging protocol: Real-time transabdominal and transvaginal pelvic ultrasound (complete) with image documentation. Transvaginal imaging was used for better evaluation of the endometrium, adnexa, and/or cervix. Real-time duplexultrasound scan of the arterial or venous flow of the ovaries with B-mode, color Doppler flow and sp ectral waveform analysis. Complete Pelvis, Limited Duplex. COMPARISON: No relevant prior studies available. FINDINGS: Uterus: Uterus measures 7.0 cm length. Endometrial stripe measures 0.2 cm thickness. Cervix: Heterogeneous fluid in the endocervical canal. Gestation: No intrauterine gestational sac, yolk sac or embryo is seen. Right ovary/adnexa: Right ovary measures 3.3 x 2.2 x 2.5 cm and contains a 2.2 cm dominant follicle or corpus luteal cyst. Doppler flow is present. Left ovary/adnexa: Left ovary measures 2.0 x 1.1 x 2.0 cm with Doppler flow. Intraperitoneal space: No intraperitoneal fluid. Urinary bladder: The bladder is under distended. IMPRESSION: 1. No intrauterine gestational sac identified. If the patient has a positive beta hCG, findings are consistent with " of unknown location" with differential diagnosis including early , nonviable , spontaneous or ectopic . 2. Heterogeneous fluid in the endometrial canal may reflect hemorrhagic debris. at 1747 Reported and signed by: Mitchell Ponce M.D. PAGE 1 Signed Report (CONTINUED) Name: EDIN ACUÑA [facility] : 2000 Age/S: 21 / F [address] [place] [address] Unit #: [id number] Loc: [place] [address] Phys: Sapna Huerta Acct: [id number] Dis Date: Status: REG ER PHONE #: [phone] Exam Date: 06/05/2022 173 FAX #: [phone] Reason: see US PREG 1st TRIMTR EXAMS: CPT CODE: [id number] [place] [address] (Continued) CC: Sapna Huerta Technologist: Dionisio Lemon Trnscb Date/Time: 06/05/2022 (1746) SluyTTV Orig Print D/T: S: 06/05/2022 (1746) Probe: [id number] PAGE 2 Signed Report- DUP AB/PEL/SC/LTD 2022-06-05 00:00:00 [facility] 2000 Sex: F Name: DOMENICOSACHINEDIN [facility] : 2000 Age/S: 21 / F [address] [place] [address] Blvd Unit #:[id number] Loc: [place] [address] Phys: Sapna Huerta Acct: [id number] Dis Date: Status: REG ER PHONE #: [phone] Exam Date: 06/05/20221731 FAX #: [phone] Reason: see US PREG 1st TRIMTR EXAMS: CPT CODE: [id number] MARY AB/PEL/SC/LTD 97087 PROCEDURE INFORMATION: Exam: US Pelvis Complete (Transabdominal), Pelvis (Transvaginal), and US Duplex Artery or Vein (Ovaries) Limited Exam date and time: 06/05/2022 5:04 PM Age: 21 years old Clinical indication: Pelvic pain; Additional info: Pelvic pain, vag bleeding, pos test at home; () TECHNIQUE: Imaging protocol: Real-time t ransabdominal and transvaginal pelvic ultrasound (complete) with image documentation. Transvaginal imaging was used for better evaluation of the endometrium, adnexa, and/or cervix. Real-time duplex ultrasound scan of the arterial or venous flow of the ovaries with B-mode, color Doppler flow and spec tral waveform analysis. Complete Pelvis, Limited Duplex. COMPARISON: No relevant prior studies available. FINDINGS: Uterus: Uterus measures 7.0 cm length. Endometrial stripe measures 0.2 cm thickness. Cervix: Heterogeneous fluid in the endocervical canal. Gestation: No intrauterine gestational sac,yolk sac or embryo is seen. Right ovary/adnexa: Right ovary measures 3.3 x 2.2 x 2.5 cm and contains a 2.2 cm dominant follicle or corpus luteal cyst. Doppler flow is present. Left ovary/adnexa: Leftovary measures 2.0 x 1.1 x 2.0 cm with Doppler flow. Intraperitoneal space: No intraperitoneal fluid. Urinary bladder: The bladder is under distended. IMPRESSION: 1. No intrauterine gestational sac id entified. If the patient has a positive beta hCG, findings are consistent with " of unknown location" with differential diagnosis including early , nonviable , spontaneous or ectopic . 2. Heterogeneous fluid in the endometrial canal may reflect hemorrhagic debris. at 1747 Reported and signed by: Mitchell Ponce M.D. PAGE 1 Signed Report (CONTINUED) Name: DOMENICOEDIN [facility] : 2000 Age/S: 21 / F [address] [place] [address] Unit #: [id number] Loc: [place] [address] Phys: Kathleen Huerta Acct: [id number] Dis Date: Status: REG ER PHONE #: [phone] Exam Date: 06/05/20221731 FAX #: [phone] Reason: see US PREG 1st TRIMTR EXAMS: CPT CODE: [id number] DUP AB/PEL/SC/LTD 39214 (Continued) CC: Sapna BANSAL February Technologist: Dionisio Lemon Trnscb Date/Time: 06/05/2022 (1746) [facility] Orig Print D/T: S: 06/05/2022 (174) Probe: PAGE 2 Signed Report Notes Date/Time Note Provider Source 2022-06-05 16:45:00 [facility] ([facility]) emergency provider report report#:[id number] report status: signed date:06/05/22 time: 1644 patient: edin acuña unit #: [id number] room/bed: age: 21 sex: f pcp phys: no primary or family physician service dt: 06/05/22 author: sapna huerta aprnnp * all edits or amendments must be made on the electronic/computer document * sana huertakenyatta king 06/05/22 1645: hpi-preg under 20 weeks general confirmed patient yes patient type new patient initial greet date/time 06/05/22 1617 presentation chief complaint abdominal cramping, vaginal bleeding context: last nl menst period free text hpi notes free text hpi notes 21-year-old female presents to the ed with complaints of lower abdominal cramping, light vaginal bleeding that began yesterday and progressively becoming worse today. patient reports lmp 04/04/2022, states she took a test 3 weeks ago which was positive, states she took another test 3 days ago which was negative. has not seen space engineer. g2 a1. denies any dysuria, vomiting, fever, chills, diarrhea, constipation. risk-preg under 20 weeks risk stratification ectopic risk factors reviewed review of systems ros statements all systems rev neg except as marked. free text ros notes free text ros notes per hpi past medical history - adult stated complaint 40 days late/has had +and-pg test/vag bleeding allergies coded allergies: amoxicillin (severe, rash-hives 06/05/22) review of nursing notes rev avail, and agree, rapid assess notes rev pt reports no significant: past medical history, past surgical history alcohol use denies etoh use drug use denies recreational drugs smoking status for patients 13 years old or older: never smoker physical exam vital signs vital signs first documented: result date time o2 delivery room air 06/05 1800 pulse ox 97 06/05 1809 b/p 102/73 06/05 1809 b/p mean 82.8 06/05 1809 temp 36.6 06/05 1809 pulse 74 06/05 1809 resp 15 06/05 180 last documented: result date time pulse ox 97 06/05 1809 b/p 102/73 06/05 1809 b/p mean 82.8 06/05 1809 temp 36.6 06/05 1809 pulse 74 06/05 1809 resp 15 06/05 180 o2 delivery room air 06/05 1800 review of vital signs reviewed focused pe general/const general/const awake, alert, no acute distress, cooperative ears/nose/throat ears/nose/throat atraumatic, airway patent, mucous membranes moist resp/chest respiratory/chest atraumatic, breath sounds nl, breath sounds = bilat, no respiratory distress cardiovascular cardiovascular heart rate nl, regular rhythm, heart sounds nl, cap refill not delayed, peripheral circulation nl abdomen/gi abdomen/gi atraumatic, soft, non-tender, mcburney's non-tender, no guarding, no rebound, no distention ms back back atraumatic, full range of motion, no cva tenderness neurologic neurologic oriented x3, speech nl, gait nl interpretation diagnostics lab results interpretation results laboratory tests 06/05/221749: [embedded image not available] laboratory tests: 06/05 1750 chemistry sodium (134 - 147 meq/l) 139 potassium (3.4 - 5.0 meq/l) 3.8 chloride (100 - 108 meq/l) 109 h carbon dioxide (21 - 33 meq/l) 23 anion gap (0 - 20) 11 bun (7 - 18 mg/dl) 8 creatinine (0.6 - 1.3 mg/dl) 0.9 glomerular filtr rate (110 - 120) 80.7 l glucose (70 - 110 mg/dl) 84 calcium (8.0 - 10.5 mg/dl) 9.0 hematology wbc (4.5 - 11.0 x10 3/ul) 7.3 rbc (3.54 - 5.02 x10 6/ul) 4.53 hgb (11.0 - 15.0 g/dl) 14.0 hct (33.0 - 45.0 %) 40.1 mcv (81.0 - 99.0 fl) 88.5 mch (27.0 - 33.0 pg) 30.9 mchc (33.0 - 37.0 g/dl) 34.9 rdw (11.5 - 14.5 %) 12.4 plt count (150 - 400 x10 3/ul) 305 mpv (7.0 - 9.0 fl) 9.9 h neut % (auto) (56.0 - 77.0 %) 53.8 l lymph % (auto) (14.0 - 32.0 %) 39.3 h mono % (auto) (4.8 - 9.0 %) 5.9 eos % (auto) (0.3 - 3.7 %) 0.4 baso % (auto) (0.0 - 2.0 %) 0.3 neut # (auto) (2.0 - 7.6 x10 3/ul) 3.90 lymph # (auto) (1.0 - 3.8 x10 3/ul) 2.85 mono # (auto) (0.1 - 0.8 x10 3/ul) 0.43 eos # (auto) (0.0 - 0.2 x10 3/ul) 0.03 baso # (auto) (0.0 - 0.2 x10 3/ul) 0.02 abs immat gran (auto) (0.00 - 0.03 x10 3/ul) 0.02 add manual diff no immature gran % (0.0 - 2.0 %) 0.3 nucleated rbc % (0 - 0 %) 0.0 nucleated rbcs # (man) (0.0 - 0.1 x10 3/ul) 0.00 miscellaneous maternal serum hcg < 2.6 recent impressions: ultrasound - dup ab/pel/sc/ltd 06/05 1732 report impression - status: signed entered: 06/05/20221746 impression: 1. no intrauterine gestational sac identified. if the patient has a positive beta hcg, findings are consistent with " of unknown location" with differential diagnosis including early , nonviable , spontaneous or ectopic . 2. heterogeneous fluid in the endometrial canal may reflect hemorrhagic debris. impression by: sanford ponce m.d. ultrasound - us transvaginal non ob 06/05 1732 report impression - status: signed entered: 06/05/20221746 impression: 1. no intrauterine gestational sac identified. if the patient has a positive beta hcg, findings are consistent with " of unknown location" with differential diagnosis including early , nonviable , spontaneous or ectopic . 2. heterogeneous fluid in the endometrial canal may reflect hemorrhagic debris. impression by: sanford ponce m.d. ultrasound - us pelvis complete 06/05 1732 report impression - status: signed entered: 06/05/20221746 impression: 1. no intrauterine gestational sac identified. if the patient has a positive beta hcg, findings are consistent with " of unknown location" with differential diagnosis including early , nonviable , spontaneous or ectopic . 2. heterogeneous fluid in the endometrial canal may reflect hemorrhagic debris. impression by: sanford ponce m.d. lab imaging statement laboratory radiographic studies reviewed and considered in the medical decision-making. point of care testing pulse oximetry pulse ox % 97 on: room air interpretation interpreted by me, pulse oximetry normal time 1808 re-evaluation mdm re-evaluation/progress re-evaluation/progress text/dict note patient's hcg is negative, ultrasound reveals no iup. pt is o+. patient updated on labs and radiology reviewed results. instructed to follow-up with pcp/space engineer in the next 2 to 3 days for repeat evaluation, educated on strict ed return precautions. patient verbalized understanding. time of re-eval 1903 patient discharge departure vital signs/condition vital signs first documented: result date time o2 delivery room air 06/05 1800 pulse ox 97 06/05 1809 b/p 102/73 06/05 1809 b/p mean 82.8 06/05 1809 temp 36.6 06/05 1809 pulse 74 06/05 1809 resp 15 06/05 1809 last documented: result date time pulse ox 97 06/05 1809 b/p 102/73 06/05 1809 b/p mean 82.8 06/05 1809 temp 36.6 06/05 1809 pulse 74 06/05 1809 resp 15 06/05 1809 o2 delivery room air 06/05 1800 all vital signs available at the time of this entry have been reviewed. condition stable clinical impression clinical impression primary impression: abdominal cramping disposition decision discharge )( discharged to home yes )( time 1903 )( date 06/05/22 discharge/care plan counseled regarding diagnosis, lab results, imaging studies, need for follow-up, when to return to ed patient instructions abdominal pain additional instructions you were evaluated in the ed today for your possible /abdominal cramping. your hcg level was negative, ultrasound did not reveal a . it is important to follow-up with pcp for repeat evaluation. please return to ed for any new or worsening of symptoms. michael eric 06/05/22 2331: patient discharge departure supervising physician note midlv saw pt alone i have reviewed the pa/griddle attendant's note and plan of care. i was available for consultation as needed at all times during the patient's visit in the emergency department. i agree with the clinical impression, plan and disposition. electronically signed by sapna huerta on 06/05/22 at 2025 electronically signed by michael eric md on 06/05/22 at 2332 rpt #:[id number] end of report [facility]
[2024-09-03] MEDS ORDERED: LIDOCAINE 1% MPF 5 ML VIAL ONE (05:55)
[2024-09-03] MEDS ORDERED: CEFTRIAXONE 1000 MG/VIAL ONE (05:55)
[2024-09-03] MEDS ORDERED: CODEINE 30MG/APAP 300MG TAB ONE (05:56)
[2024-09-03] MEDS ORDERED: IBUPROFEN 400 MG TAB ONE (05:56)
--- NOTE | 2024-09-03 06:12 | EDPHYS ---
Physician Documentation [facility] Name: Jennifer Fowler Age: 24 yrs Sex: Female : 2000 Arrival Date: 09/03/2024 Time: 05:12 Bed 15 Private MD: ED Physician Nain Carlos HPI: 09/03 05:19 This 24 yrs old Female presents to ER via Unassigned with complaints of Ear sp4 Pain. 09/04 04:37 24-year-old female presents with complaint of the left ear pain.. sp4 ALPINE GUIDE: 09/03 05:37 LMP 08/20/2024, unknown kc6 Historical: - Allergies: 05:37 Amoxicillin; kc6 - Home Meds: 05:37 None [Active]; kc6 - PMHx: 05:37 None; kc6 - PSHx: 05:37 None; kc6 - Immunization history:: Adult Immunizations up to date. - Infectious Disease History:: Denies. - Social history:: Smoking status: Reported history of juuling and/or vaping. - Family history:: not pertinent. ROS: 09/04 04:37 Constitutional: Negative for fever, chills, and weight loss, ENT: Positive for left ear sp4 pain All other systems are negative, Exam: 04:37 Constitutional: This is a well developed, well nourished patient who is awake, alert, sp4 and in no acute distress. Head/Face: Normocephalic, atraumatic. Eyes: Pupils equal round and reactive to light, extra-ocular motions intact. Lids and lashes normal. Conjunctiva and sclera are not injected. Cornea within normal limits. Periorbital areas with no swelling, redness, or edema. ENT: Nares patent. No nasal discharge, no septal abnormalities noted. Oropharynx with no redness, swelling, or masses, exudates, or evidence of obstruction, uvula midline. Mucous membranes moist. Right ear exam is normal, left ear exam reveals mild redness and TM opacification. Neck: Trachea midline, no thyromegaly or masses palpated, and no cervical lymphadenopathy. Supple, full range of motion without nuchal rigidity, or vertebral point tenderness. Chest/axilla: Normal chest wall appearance and motion. Nontender with no deformity. No lesions are appreciated. Cardiovascular: Regular rate and rhythm with a normal S1 and S2. No gallops, murmurs, or rubs. Normal PMI, no JVD. No pulse deficits. Respiratory: Lungs have equal breath sounds bilaterally, clear to auscultation and percussion. No rales, rhonchi or wheezes noted. No increased work of breathing, no retractions or nasal flaring. Abdomen/GI: Soft, with normal bowel sounds. No distension or tympany. No guarding or rebound. No evidence of tenderness throughout. Back: No spinal tenderness. No costovertebral tenderness. Skin: Warm, dry with normal turgor. Normal color with no rashes, no lesions, and no evidence of cellulitis. MS/ Extremity: Pulses equal, no cyanosis. Neurovascular intact. Full, normal range of motion. Neuro: Awake and alert, GCS 15, oriented to person, place, time, and situation. Cranial nerves II-XII grossly intact. Motor strength 5/5 in all extremities. Sensory grossly intact. Psych: Awake, alert, with orientation to person, place and time. Behavior, mood, and affect are within normal limits Vital Signs: 09/03 05:36 BP 116 / 82; Pulse 86; Resp 16 S; Temp 98.5(O); Pulse Ox 100% on R/A; Weight 56.7 kg kc6 (R); Height 5 ft. 3 in. ; 05:36 Body Mass Index 22.14 (56.70 kg, 160.02 cm) kc6 MDM: 05:48 Medical Screening Exam initiated sp4 09/04 04:37 Differential diagnosis: otitis media, otitis externa, ruptured TM, foreign body, acute sp4 otalgia. Data reviewed: vital signs, nurses notes, old medical records. ED course: Stable for discharge home after medications in ER.. Administered Medications: 09/03 06:01 Drug: Acetaminophen-Codeine PO (300 mg-30 mg) 2 tabs PO once; RASS on ADMIN: Combtv4, kc6 Very Agttd3, Agttd2, Rstlss1, AlertClm0, Drwsy-1, Lt Sdtn-2, Mod Sdtn-3, Dp Sdtn-4, UnArsble-5 Route: PO; 06:14 Follow up: Response: No adverse reaction; Pain is decreased; RASS: Alert and Calm (0) kc6 06:01 Drug: Ibuprofen PO 800 mg PO once Route: PO; kc6 06:14 Follow up: Response: No adverse reaction; Pain is decreased kc6 06:01 Drug: Rocephin (cefTRIAXone) IM 1 grams IM once Route: IM; Site: right deltoid; kc6 06:14 Follow up: Response: No adverse reaction kc6 Disposition: 09/04 05:20 Chart complete. sp4 Disposition Summary: 09/03/24 06:12 Discharge Ordered Notes: Location: Home sp4 Problem: new sp4 Symptoms: have improved sp4 Condition: Stable sp4 Diagnosis - Acute suppurative otitis media without spontaneous rupture of ear drum, left ear sp4 Followup: sp4 - With: Private Physician - When: As needed - Reason: Discharge Instructions: - Discharge Summary Sheet sp4 - Otitis Media, Adult, Eqxj-oh-Tymc sp4 Forms: - Work release form kc6 - Patient Portal Instructions sp4 Prescriptions: - cefdinir 300 mg Oral capsule - take 1 capsule ORAL route every 12 hours for 10 days; 20 capsule; Refills: 0, sp4 Product Selection Permitted - Ibuprofen 600 mg Oral Tablet - take 1 tablet ORAL route every 6 hours As needed take with food; 30 tablet; sp4 Refills: 0, Product Selection Permitted Signatures: Chelle Shah RN RN kc6 Nain Carlos MD MD sp4
--- NOTE | 2024-09-03 06:12 | ER ---
Nurse's Notes [facility] Name: Jennifer Fowler Age: 24 yrs Sex: Female : 2000 Arrival Date: 09/03/2024 Time: 05:12 Bed 15 Private MD: Diagnosis: Acute suppurative otitis media without spontaneous rupture of ear drum, left ear Presentation: 09/03 05:36 Chief complaint: Patient states: left ear pain that started 2hrs INFORMATION CL[employer]. Coronavirus kc6 screen: At this time, the client does not indicate any symptoms associated with coronavirus-19. Ebola Screen: No symptoms or risks identified at this time. Initial Sepsis Screen: Does the patient meet any 2 criteria? No. Patient's initial sepsis screen is negative. Does the patient have a suspected source of infection? No. Patient's initial sepsis screen is negative. Risk Assessment: Do you want to hurt yourself or someone else? Patient reports no desire to harm self or others. Onset of symptoms was September 03, 2024. 05:36 Method Of Arrival: Ambulatory [facility] 05:36 Acuity: FRANK [address] [facility] MEDICAL OFFICE RECEPTIONIST: 05:37 LMP 08/20/2024, unknown [facility] Historical: - Allergies: 05:37 Amoxicillin; 6 - Home Meds: 05:37 None [Active]; kc6 - PMHx: 05:37 None; kc6 - PSHx: 05:37 None; kc6 - Immunization history:: Adult Immunizations up to date. - Infectious Disease History:: Denies. - Social history:: Smoking status: Reported history of juuling and/or vaping. - Family history:: not pertinent. Screenin:37 [facility] ED Fall Risk Assessment (Adult) History of falling in the last 3 months, kc6 including since admission No falls in past 3 months (0 pts) Confusion or Disorientation No (0 pts) Intoxicated or Sedated No (0 pts) Impaired Gait No (0 pts) Mobility Assist Device Used No (0 pt) Altered Elimination No (0 pt) Score/Fall Risk Level 0 - 2 = Low Risk Oriented to surroundings. Abuse screen: Denies threats or abuse. Denies injuries from another. Nutritional screening: No deficits noted. Tuberculosis screening: No symptoms or risk factors identified. Assessment: 05:38 General: Appears in no apparent distress. comfortable, well groomed, well developed, kc6 Behavior is calm, cooperative, appropriate for age. Pain: Complains of pain in left ear. Neuro: Level of Consciousness is awake, alert, obeys commands. Respiratory: Airway is patent Trachea midline Respiratory effort is even, unlabored, Respiratory pattern is regular, symmetrical. EENT: Tympanic membrane reddened on left ear Ear canal clear on left ear Reports pain in left ear. Derm: No signs and/or symptoms reported regarding the dermatologic system. Skin is intact, is healthy with good turgor, Skin is pink, warm \T\ dry. Vital Signs: 05:36 BP 116 / 82; Pulse 86; Resp 16 S; Temp 98.5(O); Pulse Ox 100% on R/A; Weight 56.7 kg kc6 (R); Height 5 ft. 3 in. ; 05:36 Body Mass Index 22.14 (56.70 kg, 160.02 cm) kc6 ED Course: 05:15 Patient arrived in ED. jj6 05:19 Nain Carlos MD is Attending Physician. sp4 05:36 Chelle Shah, RAKEL is Primary Nurse. kc6 05:37 Triage completed. kc6 05:37 Arm band placed on. kc6 05:37 Patient has correct armband on for positive identification. Bed in low position. Call kc6 light in reach. Side rails up X 1. Adult w/ patient. Pulse ox on. NIBP on. Door closed. Noise minimized. Lights dimmed. Pillow given. 05:37 Patient maintains SpO2 saturation greater than 95% on room air. kc6 06:19 No provider procedures requiring assistance completed. Patient did not have IV access kc6 during this emergency room visit. Administered Medications: 06:01 Drug: Acetaminophen-Codeine PO (300 mg-30 mg) 2 tabs PO once; RASS on ADMIN: Combtv4, kc6 Very Agttd3, Agttd2, Rstlss1, AlertClm0, Drwsy-1, Lt Sdtn-2, Mod Sdtn-3, Dp Sdtn-4, UnArsble-5 Route: PO; 06:14 Follow up: Response: No adverse reaction; Pain is decreased; RASS: Alert and Calm (0) [facility] 06:01 Drug: Ibuprofen PO 800 mg PO once Route: PO; kc6 06:14 Follow up: Response: No adverse reaction; Pain is decreased kc6 06:01 Drug: Rocephin (cefTRIAXone) IM 1 grams IM once Route: IM; Site: right deltoid; kc6 06:14 Follow up: Response: No adverse reaction kc6 Medication: 06:19 VIS not applicable for this client. kc6 Outcome: 06:12 Discharge ordered by spYves 06:19 Discharged to home ambulatory, with significant other, kc6 06:19 Condition: good 06:19 Discharge instructions given to patient, significant other, Instructed on discharge instructions, follow up and referral plans. no drinking with medication, no driving heavy equipment, medication usage, Demonstrated understanding of instructions, follow-up care, medications, Prescriptions given X 2, :19 Patient left the ED. kc6 Signatures: Natali Covarrubias Kaitlyn RN RN kc6 Nain Carlos MD MD sp4
[2024-09-03 06:24] VITALS: BP 116/82; TEMP 98.5; O2SAT 100
== END 2024-09-03 06:19 | disposition home or self-care (01) ==
LOC: ER 05:12
DX: H66.002 Acute suppurative otitis media without spontaneous rupture of ear drum, left ear (principal)
CPT/HCPCS: J2003; J0696